=== PATIENT | male | born 1975 | race Caucasian/White ===

== ENCOUNTER → 2017-06-07 | Outpatient (CLI) | payer OTHER ==
--- NOTE | 2017-06-07 12:00 | XR ---
EXAMINATION TYPE: XR knee complete RT DATE OF EXAM: 06/07/2017 COMPARISON: NONE HISTORY: 42 year-old male right knee pain TECHNIQUE: 3 views FINDINGS: Trace nonspecific knee joint effusion. Extensor mechanism is intact. No acute fracture, subluxation, or dislocation. IMPRESSION: Trace nonspecific knee joint effusion. No acute osseous abnormality seen.
== END | disposition home or self-care (01) ==
LOC: RADXRMAIN 11:26
PROVIDERS: ATTEND Physician Assistant
DX: M25.561 Pain in right knee (principal)

== ENCOUNTER → 2018-07-04 | Outpatient (CLI) | payer OTHER ==
--- NOTE | 2018-07-05 10:27 | MR ---
EXAMINATION TYPE: MR pituitary wo/w con DATE OF EXAM: 07/04/2018 6:33 PM COMPARISON: NONE HISTORY: Other specified endocrine disorders CONTRAST: Patient received 7.5 mL intravenous Gadavist gadolinium contrast. Multiplanar MultiSpin echo imaging of the pituitary fossa was performed. Unenhanced followed by cont rast enhanced images are submitted. The unenhanced portion of the study fails to demonstrate evidence for hyperintense pituitary lesion. The pituitary gland is of normal size and measures 1.0 x 1.1 x .6 cm. Following contrast administra tion there is no evidence for filling defect to suggest microadenoma. Pituitary stalk is midline. S uprasellar cistern is unremarkable without evidence for mass. Optic chiasm has a normal appearance. Cavernous sinus including the carotid vessels appear to be within normal limits. IMPRESSION: 1. No evidence for pituitary micro or macroadenoma.
== END | disposition home or self-care (01) ==
LOC: RADMRIMAIN 16:24
PROVIDERS: ATTEND Family Medicine
DX: E34.8 Other specified endocrine disorders (principal)
CPT/HCPCS: 70553; A9585

== ENCOUNTER → 2018-07-04 | Outpatient (CLI) | payer OTHER | LOC: LABWHC1 11:04 | PROVIDERS: ATTEND Family Medicine | DX: E34.8 Other specified endocrine disorders (principal) | CPT/HCPCS: 36415; 82024 ==

== ENCOUNTER → 2018-07-22 | Outpatient (CLI) | payer OTHER ==
--- NOTE | 2018-07-22 08:55 | MR ---
EXAMINATION TYPE: MR brain wo/w con DATE OF EXAM: 07/22/2018 COMPARISON: Prior MRI pituitary gland July 04, 2018. Prior brain MRI January 21, 2012. HISTORY: Other specified endocrine disorders TECHNIQUE: Multiplanar, multisequence images of the brain and brainstem is performed without and with IV contras t, utilizing 7.5 mL intravenous Gadavist . FINDINGS: Diffusion weighted images demonstrate no evidence of a recent infarct or other diffusion ab normality. There is slight prominence of CSF over bilateral frontal lobes redemonstrated slightly mo re prominent from 2012 MRI consistent with mild symmetric frontal lobe atrophy. There are few scatter ed foci of T2 hyperintensity seen throughout the white matter bilaterally, less than 5 tiny lesions a re felt present. Midline structures demonstrate normal morphology. The craniocervical junction appears within normal limits. Post contrast images demonstrate no abnormal enhancement. The dural venous sinuses appear pa tent. The visualized sinuses are clear and the globes are intact. Patchy fluid signal bilateral masto id air cells is redemonstrated. IMPRESSION: No suspicious enhancing mass. Pituitary gland remains normal in size.
== END | disposition home or self-care (01) ==
LOC: RADMRIMAIN 08:10
PROVIDERS: ATTEND Family Medicine
DX: E34.8 Other specified endocrine disorders (principal)
CPT/HCPCS: 70553; A9585

== ENCOUNTER → 2018-08-15 | Outpatient (CLI) | payer OTHER ==
[2018-08-15 18:56] LABS: T4, Free (Free Thyroxine) 1.6 ng/dL (0.80-1.80)
== END ==
LOC: LABWHC1 11:09
PROVIDERS: ATTEND Internal Medicine
DX: E03.9 Hypothyroidism, unspecified (principal); E23.7 Disorder of pituitary gland, unspecified
CPT/HCPCS: 36415; 84439; 84443; 84445; 84481; 86376

== ENCOUNTER 2024-01-08 10:16 | Inpatient (IN) | payer OTHER ==
--- NOTE | 2024-01-08 10:21 | ED ---
General Adult HPI - General Stated complaint: Low Blood sugar Time Seen by Provider: 01/08/24 10:16 Source: patient, RN notes reviewed, old records reviewed - History of Present Illness Initial comments: This is a 48-year-old male who was found down by his roommate according to the roommate he was down for 4 hours. Patient states he took insulin of his 's because he is sick of living without her. Patient had a low sugar when EMS got there they gave the patient some glucose and the patient came around and route here. Patient is freezing cold at this point. Patient denies any pain patient denies chest pain difficulty breathing shortness of breath. Patient has abdominal pain patient has nausea vomiting diarrhea. Patient denies any recent fever. According to EMS the patient's home was in complete disarray and disgusting food all over the place including raw meat counters look like feces on the floor. - Related Data Home Medications Medication Instructions Recorded Confirmed No Known Home Medications 01/08/24 01/08/24 Allergies Allergy/AdvReac Type Severity Reaction Status Date / Time No Known Allergies Allergy Verified 01/08/24 12:29 Review of Systems ROS Statement: Those systems with pertinent positive or pertinent negative responses have been documented in the HPI. ROS Other: All systems not noted in ROS Statement are negative. General Exam - General Exam Comments Initial Comments: GENERAL: Patient is well-developed and well-nourished. Patient is nontoxic and well- hydrated and is in mild distress. Patient is very cold to the touch ENT: Neck is soft and supple. No significant lymphadenopathy is noted. Oropharynx is clear. Moist mucous membranes. Neck has full range of motion without eliciting any pain. EYES: The sclera were anicteric and conjunctiva were pink and moist. Extraocular movements were intact and pupils were equal round and reactive to light. Eyel ids were unremarkable. PULMONARY: Unlabored respirations. Good breath sounds bilaterally. No audible rales rhonchi or wheezing was noted. CARDIOVASCULAR: There is a regular rate and rhythm without any murmurs gallops or rubs. ABDOMEN: Soft and nontender with normal bowel sounds. SKIN: Skin is clear with no lesions or rashes and otherwise unremarkable. NEUROLOGIC: Patient is alert and oriented x3. Cranial nerves II through XII are grossly intact. Motor and sensory are also intact. Normal speech, volume and content. Symmetrical smile. MUSCULOSKELETAL: Normal extremities with adequate strength and full range of motion. LYMPHATICS: No significant lymphadenopathy is noted PSYCHIATRIC: Normal psychiatric evaluation. Course Vital Signs 01/08/24 01/08/24 01/08/24 10:29 10:50 11:25 Temperature 89.6 F L 90.3 F L Pulse Rate 87 61 Respiratory 18 18 Rate Blood Pressure 108/66 O2 Sat by Pulse 98 99 Oximetry 01/08/24 11:51 Temperature 91.6 F L Pulse Rate 66 Respiratory 18 Rate Blood Pressure 89/66 O2 Sat by Pulse 98 Oximetry Medical Decision Making - Medical Decision Making EKG is interpreted by myself. EKG is a sinus rhythm at 71 bpm parables under 97 QRS is 89 QT interval 397 QTc is 419. Patient's EKG shows no ST segment elevation or depression. Was pt. sent in by a medical professional or institution (, PA, CULINARY INSTRUCTOR, urgent care, hospital, or residential...) When possible be specific @ -No Did you speak to anyone other than the patient for history (EMS, parent, family, police, friend...)? What history was obtained from this source @ -EMS gave the history that they received from the patient's roommate because the patient was unresponsive at the time and did not know the history. Did you review nursing and triage notes (agree or disagree)? Why? @ -I reviewed and agree with nursing and triage notes Were old charts reviewed (outside hosp., previous admission, EMS record, old EKG, old radiological studies, urgent care reports/EKG's, residential records)? Report findings @ -No old charts were reviewed Differential Diagnosis (chest pain, altered mental status, abdominal pain women, abdominal pain men, vaginal bleeding, weakness, fever, dyspnea, syncope, headache, dizziness, GI bleed, back pain, seizure, CVA, palpatations, mental health, musculoskeletal)? @ -Differential Altered Mental Status: Hypoglycemia, DKA, hypercapnia, ETOH, overdose, CO poisoning, trauma, myxedema coma, HTN encephalopathy, infection, encephalitis, psychosis, intercranial hemorrhage, hepatic encephalopathy, meningitis, CVA, this is not meant to be an all-inclusive list EKG interpreted by me (3pts min.). @ -As above X-rays interpreted by me (1pt min.). @ -Chest x-ray shows no acute abnormality CT interpreted by me (1pt min.). @ -None done U/S interpreted by me (1pt. min.). @ -None done What testing was considered but not performed or refused? (CT, X-rays, U/S, labs)? Why? @ -None What meds were considered but not given or refused? Why? @ -None Did you discuss the management of the patient with other professionals (professionals i.e. DrClaudia, PA, CULINARY INSTRUCTOR, lab, RT, psych nurse, social scientist, hand cloth folder, teacher, business liaison officer, correctional counselor/case manager)? Give summary @ -I spoke with [facility] hospitalist and they agreed admit the patient Was smoking cessation discussed for >3mins.? @ -No Was critical care preformed (if so, how long)? @ -35 minutes Were there social determinants of health that impacted care today? How? (Home lessness, low income, unemployed, alcoholism, drug addiction, transportation, low edu. Level, literacy, decrease access to med. care, [facility], rehab)? @ -No Was there de-escalation of care discussed even if they declined (Discuss DNR or withdrawal of care, Hospice)? DNR status @ -No What co-morbidities impacted this encounter? (DM, HTN, Smoking, COPD, CAD, Cancer, CVA, ARF, Chemo, Hep., AIDS, mental health diagnosis, sleep apnea, morbid obesity)? @ -None Was patient admitted / discharged? Hospital course, mention meds given and route, prescriptions, significant lab abnormalities, going to OR and other pertinent info. @ -Patient was hypothermic when he arrived he was placed on a blanketrol and B ear hugger as well as was given warm fluids. Patient was also given a meal he was feeling much better but he did state he was suicidal. Patient will be admitted medically to make sure his sugar stabilized secondary to the fact he took insulin and we do not know how much and patient will have a psych consult as well. Patient's lactic acid was elevated however I believe this is secondary to poor perfusion secondary to the patient lying on the ground for at least 4 hours and not moving secondary to hypoglycemia. Patient was given fluid. No signs of infection were found Undiagnosed new problem with uncertain prognosis? @ -No Drug Therapy requiring intensive monitoring for toxicity (Heparin, Nitro, Insulin, Cardizem)? @ -No Were any procedures done? @ -No Diagnosis/symptom? @ -Suicidal attempt Acute, or Chronic, or Acute on Chronic? @ -Acute Uncomplicated (without systemic symptoms) or Complicated (systemic symptoms)? @ -Comp Side effects of treatment? @ -No Exacerbation, Progression, or Severe Exacerbation? @ -No Poses a threat to life or bodily function? How? (Chest pain, USA, AR, pneumonia, PE, COPD, DKA, ARF, appy, cholecystitis, CVA, Diverticulitis, Homicidal, Suicidal, threat to staff... and all critical care pts) @ -Yes this can lead to him trying to harm himself and causing . Diagnosis/symptom? @ -Hypothermia Acute, or Chronic, or Acute on Chronic? @ -Acute Uncomplicated (without systemic symptoms) or Complicated (systemic symptoms)? @ -Complicated Side effects of treatment? @ -None Exacerbation, Progression, or Severe Exacerbation] @ -No Poses a threat to life or bodily function? @ -No Diagnosis/symptom? @ -Hypoglycemia Acute, or Chronic, or Acute on Chronic? @ -Acute Uncomplicated (without systemic symptoms) or Complicated (systemic symptoms)? @ -Complicated Side effects of treatment? @ -None Exacerbation, Progression, or Severe Exacerbation] @ -No Poses a threat to life or bodily function? @ -No Diagnosis/symptom? @ -Lactic acidosis Acute, or Chronic, or Acute on Chronic? @ -Acute Uncomplicated (without systemic symptoms) or Complicated (systemic symptoms)? @ -Uncomplicated Side effects of treatment? @ -None Exacerbation, Progression, or Severe Exacerbation] @ -No Poses a threat to life or bodily function? @ -No - Lab Data Result diagrams: 01/08/24 10:38 01/08/24 10:38 Lab Results 01/08/24 01/08/24 01/08/24 Range/Units 10:21 10:38 10:38 WBC 6.7 (3.8-10.6) k/uL RBC 4.30 (4.30-5.90) m/uL Hgb 13.6 (13.0-17.5) gm/dL Hct 42.2 (39.0-53.0) % MCV 98.1 (80.0-100.0) fL MCH 31.6 (25.0-35.0) pg MCHC 32.2 (31.0-37.0) g/dL RDW 14.7 (11.5-15.5) % Plt Count 123 L (150-450) k/uL MPV 8.7 Neutrophils % 80 % Lymphocytes % 14 % Monocytes % 5 % Eosinophils % 0 % Basophils % 0 % Neutrophils # 5.3 (1.3-7.7) k/uL Lymphocytes # 1.0 (1.0-4.8) k/uL Monocytes # 0.3 (0-1.0) k/uL Eosinophils # 0.0 (0-0.7) k/uL Basophils # 0.0 (0-0.2) k/uL Sodium 139 (137-145) mmol/L Potassium 4.1 (3.5-5.1) mmol/L Chloride 102 (98-107) mmol/L Carbon Dioxide 19 L (22-30) mmol/L Anion Gap 18 mmol/L BUN 12 (9-20) mg/dL Creatinine 1.06 (0.66-1.25) mg/dL Est GFR (CKD-EPI)AfAm >90 (>60 ml/min/1.73 sqM) Est GFR (CKD-EPI)NonAf 83 (>60 ml/min/1.73 sqM) Glucose 44 L* (74-99) mg/dL POC Glucose (mg/dL) 63 L (70-110) mg/dL POC Glu Curator Of Education ID Humera Joseph Lactic Ac Sepsis Rflx Plasma Lactic Acid Christopher (0.7-2.0) mmol/L Calcium 8.9 (8.4-10.2) mg/dL Magnesium 2.5 H (1.6-2.3) mg/dL Total Bilirubin 0.5 (0.2-1.3) mg/dL AST 48 (17-59) U/L ALT 55 H (4-49) U/L Alkaline Phosphatase 39 (38-126) U/L Creatine Kinase 274 H (55-170) U/L Troponin I (0.000-0.034) ng/mL Total Protein 7.6 (6.3-8.2) g/dL Albumin 4.3 (3.5-5.0) g/dL Acetaminophen <10.0 ug/mL 01/08/24 01/08/24 01/08/24 Range/Units 10:38 10:38 11:26 WBC (3.8-10.6) k/uL RBC (4.30-5.90) m/uL Hgb (13.0-17.5) gm/dL Hct (39.0-53.0) % MCV (80.0-100.0) fL MCH (25.0-35.0) pg MCHC (31.0-37.0) g/dL RDW (11.5-15.5) % Plt Count (150-450) k/uL MPV Neutrophils % % Lymphocytes % % Monocytes % % Eosinophils % % Basophils % % Neutrophils # (1.3-7.7) k/uL Lymphocytes # (1.0-4.8) k/uL Monocytes # (0-1.0) k/uL Eosinophils # (0-0.7) k/uL Basophils # (0-0.2) k/uL Sodium (137-145) mmol/L Potassium (3.5-5.1) mmol/L Chloride (98-107) mmol/L Carbon Dioxide (22-30) mmol/L Anion Gap mmol/L BUN (9-20) mg/dL Creatinine (0.66-1.25) mg/dL Est GFR (CKD-EPI)AfAm (>60 ml/min/1.73 sqM) Est GFR (CKD-EPI)NonAf (>60 ml/min/1.73 sqM) Glucose (74-99) mg/dL POC Glucose (mg/dL) (70-110) mg/dL POC Glu Curator Of Education ID Lactic Ac Sepsis Rflx Y Plasma Lactic Acid Christopher 8.9 H* (0.7-2.0) mmol/L Calcium (8.4-10.2) mg/dL Magnesium (1.6-2.3) mg/dL Total Bilirubin (0.2-1.3) mg/dL AST (17-59) U/L ALT (4-49) U/L Alkaline Phosphatase (38-126) U/L Creatine Kinase (55-170) U/L Troponin I <0.012 (0.000-0.034) ng/mL Total Protein (6.3-8.2) g/dL Albumin (3.5-5.0) g/dL Acetaminophen ug/mL 01/08/24 01/08/24 01/08/24 Range/Units 11:28 11:29 11:50 WBC (3.8-10.6) k/uL RBC (4.30-5.90) m/uL Hgb (13.0-17.5) gm/dL Hct (39.0-53.0) % MCV (80.0-100.0) fL MCH (25.0-35.0) pg MCHC (31.0-37.0) g/dL RDW (11.5-15.5) % Plt Count (150-450) k/uL MPV Neutrophils % % Lymphocytes % % Monocytes % % Eosinophils % % Basophils % % Neutrophils # (1.3-7.7) k/uL Lymphocytes # (1.0-4.8) k/uL Monocytes # (0-1.0) k/uL Eosinophils # (0-0.7) k/uL Basophils # (0-0.2) k/uL Sodium (137-145) mmol/L Potassium (3.5-5.1) mmol/L Chloride (98-107) mmol/L Carbon Dioxide (22-30) mmol/L Anion Gap mmol/L BUN (9-20) mg/dL Creatinine (0.66-1.25) mg/dL Est GFR (CKD-EPI)AfAm (>60 ml/min/1.73 sqM) Est GFR (CKD-EPI)NonAf (>60 ml/min/1.73 sqM) Glucose (74-99) mg/dL POC Glucose (mg/dL) 21 L <20 L 110 (70-110) mg/dL POC Glu Curator Of Education ID Fenton, Humera Fenton, Humera Jake, Humera Lactic Ac Sepsis Rflx Plasma Lactic Acid Christopher (0.7-2.0) mmol/L Calcium (8.4-10.2) mg/dL Magnesium (1.6-2.3) mg/dL Total Bilirubin (0.2-1.3) mg/dL AST (17-59) U/L ALT (4-49) U/L Alkaline Phosphatase (38-126) U/L Creatine Kinase (55-170) U/L Troponin I (0.000-0.034) ng/mL Total Protein (6.3-8.2) g/dL Albumin (3.5-5.0) g/dL Acetaminophen ug/mL Disposition Clinical Impression: Hypoglycemia, Hypothermia, Suicide attempt, Lactic acidosis Disposition: ADMITTED IP TO THIS HOSP Referrals: Scot Tran MD [Primary Care Provider] - 1-2 days Time of Disposition: 13:44
[2024-01-08 10:32] LABS: Glucose,Whole Blood 63 mg/dL (70-110)
[2024-01-08] MEDS: SODIUM CHLORIDE 0.9% 1,000 ML IV STA (10:33)
[2024-01-08] MEDS: DEXTROSE 5%-0.45% NACL 1,000 ML IV ONE (10:36)
[2024-01-08 10:54] LABS: Basophils % (A) 0 %; Eosinophils % (A) 0 %; HCT 42.2 % (39.0-53.0); HGB 13.6 gm/dL (13.0-17.5); Lymphocytes % (A) 14 %; MCH 31.6 pg (25.0-35.0); MCHC 32.2 g/dL (31.0-37.0); MCV 98.1 fL (80.0-100.0); Mean Platelet Volume 8.7; Monocytes # (A) 0.3 k/uL (0-1.0); Monocytes % (A) 5 %; Neutrophils # (A) 5.3 k/uL (1.3-7.7); Neutrophils % (A) 80 %; Platelet Count 123 k/uL (150-450); RDW 14.7 % (11.5-15.5); WBC 6.7 k/uL (3.8-10.6)
[2024-01-08 11:05] LABS: ALT 55 U/L (4-49); AST 48 U/L (17-59); Acetaminophen <10.0 ug/mL; African American GFR (CKD) >90 (>60 ml/min/1.73 sqM); Albumin 4.3 g/dL (3.5-5.0); Alkaline Phosphatase 39 U/L (38-126); Anion Gap 18 mmol/L; Blood Urea Nitrogen 12 mg/dL (9-20); Calcium 8.9 mg/dL (8.4-10.2); Carbon Dioxide 19 mmol/L (22-30); Chloride 102 mmol/L (98-107); Creatine Kinase 274 U/L (55-170); Magnesium 2.5 mg/dL (1.6-2.3); Non-African American GFR(CKD) 83 (>60 ml/min/1.73 sqM); Potassium 4.1 mmol/L (3.5-5.1); Sodium 139 mmol/L (137-145); Total Bilirubin 0.5 mg/dL (0.2-1.3); Total Protein 7.6 g/dL (6.3-8.2)
[2024-01-08 11:26] LABS: Glucose 44 mg/dL (74-99)
[2024-01-08] MEDS: DEXTROSE 50% SYRINGE 50 ML IVP STA (11:33)
[2024-01-08 11:34] LABS: Glucose,Whole Blood <20 mg/dL (70-110)
[2024-01-08 11:34] LABS: Glucose,Whole Blood 21 mg/dL (70-110)
--- NOTE | 2024-01-08 11:59 | XR ---
EXAMINATION TYPE: XR chest 2V DATE OF EXAM: 01/08/2024 COMPARISON: None HISTORY: 48-year-old male with recent pain TECHNIQUE: AP and lateral views FINDINGS: The cardiomediastinal silhouette, aorta, and pulmonary vasculature are within normal limits. No conso lidation or pleural effusion. IMPRESSION: No acute cardiopulmonary process.
[2024-01-08 12:01] LABS: Glucose,Whole Blood 110 mg/dL (70-110)
[2024-01-08 16:13] LABS: Glucose,Whole Blood 50 mg/dL (70-110)
[2024-01-08 18:54] LABS: Glucose,Whole Blood 142 mg/dL (70-110)
[2024-01-08 20:05] LABS: Glucose,Whole Blood 157 mg/dL (70-110)
[2024-01-08] MEDS: SODIUM CHLORIDE 0.9% 1,000 ML IV ONE (20:08)
[2024-01-08] MEDS: SODIUM CHLORIDE 0.9% 500 ML 500 ML IV ONE ×2 (21:20→23:18)
[2024-01-08 21:33] LABS: Appearance,Urine Clear (Clear); Bilirubin,Urine Negative (Negative); Blood,Urine Small (Negative); Color,Urine Colorless; Glucose,Urine (UA) Negative (Negative); Hyaline Casts,Urine 11 /lpf (0-2); Ketones,Urine Negative (Negative); Leukocyte Esterase,Urine Negative (Negative); Mucus,Urine Rare /hpf; Nitrite,Urine Negative (Negative); PH, Urine 5.5 (5.0-8.0); Protein,Urine Trace (Negative); RBC,Urine 1 /hpf (0-5); Specific Gravity,Urine 1.007 (1.001-1.035); Urobilinogen,Urine <2.0 mg/dL (<2.0); WBC,Urine 1 /hpf (0-5)
[2024-01-08 22:16] LABS: Glucose,Whole Blood 144 mg/dL (70-110)
[2024-01-09 00:45] LABS: Glucose,Whole Blood 87 mg/dL (70-110)
[2024-01-09] MEDS: ACETAMINOPHEN TAB 500 MG TAB PO PRN (00:51)
--- NOTE | 2024-01-09 02:02 | HP ---
HISTORY AND PHYSICAL CHIEF COMPLAINT: insulin injection as well as low blood sugar. HISTORY OF PRESENT ILLNESS: This is a 48-year-old gentleman with a past medical history of no significant medical illness, apparently injected large dose of insulin in his stomach. The patient was found by the roommate and was down at least for 4 hours. The patient took insulin of his . The patient's recently passed because of multiple medical issues apparently including diabetes mellitus and the patient is severely depressed after that. The patient was found to be cold and blood sugars dropped, D50 was given and the patient has been admitted for further evaluation and treatment. There is no history of any fevers, rigors, or chills. PAST MEDICAL HISTORY: No significant cardiorespiratory illness. HOME MEDICATIONS: None. ALLERGIES: None. FAMILY HISTORY: No history of heart disease or stroke. SOCIAL HISTORY: No history of smoking or alcohol. REVIEW OF SYSTEMS: A 14-point review is negative except as mentioned earlier. PHYSICAL EXAMINATION: VITAL SIGNS: Pulse is 61, blood pressure 89/60, respirations 18, temperature 91.6. HEENT: Conjunctivae normal. NECK: No jugular venous distention. RESPIRATIONS: Diminished at the bases, few scattered rhonchi and crackles. ABDOMEN: Soft, nontender. LEGS: No edema, no swelling. NERVOUS SYSTEM: No focal deficit. LABS: Accu-Chek 44. Lactic acid is 8.9. ASSESSMENT: 1. Severe hypoglycemia secondary to intentional overdose of insulin. 2. Lactic acidemia present on admission with mild rhabdomyolysis. 3. Thrombocytopenia. 4. Severe depression and suicidal ideations. RECOMMENDATIONS AND DISCUSSION: This 48-year-old gentleman presented with multiple complex medical issues, we will monitor the patient closely. I would recommend to continue with checking blood sugars and IV fluids. I would also recommend basic labs and chest x-ray, cultures, psychiatric evaluation. Guarded prognosis because of multiple complex medical issues and further recommendations to follow. Discussed with the patient and see orders for further details. MMODL / IJN: [id number] / MTDKeshav
[2024-01-09 02:38] LABS: Glucose,Whole Blood 86 mg/dL (70-110)
[2024-01-09] MEDS: SODIUM CHLORIDE 0.9% 1,000 ML IV SCH (04:00)
[2024-01-09 04:06] LABS: Glucose,Whole Blood 74 mg/dL (70-110)
[2024-01-09] MEDS: SODIUM CHLORIDE 0.9% 500 ML 500 ML IV ONE (04:30)
[2024-01-09 04:57] LABS: Glucose,Whole Blood 73 mg/dL (70-110)
[2024-01-09 05:26] LABS: Glucose,Whole Blood 69 mg/dL (70-110)
[2024-01-09] MEDS: GLUCAGON 1 MG/ML VIAL IM STA (05:42)
[2024-01-09 05:46] LABS: Glucose,Whole Blood 76 mg/dL (70-110)
[2024-01-09] MEDS: PANTOPRAZOLE 40 MG TABLET PO SCH (06:02)
[2024-01-09 06:07] LABS: Glucose,Whole Blood 90 mg/dL (70-110)
[2024-01-09 07:12] LABS: Basophils % (A) 0 %; Eosinophils % (A) 0 %; HCT 35.7 % (39.0-53.0); HGB 11.3 gm/dL (13.0-17.5); Lymphocytes # (A) 1.8 k/uL (1.0-4.8); Lymphocytes % (A) 36 %; MCH 31.5 pg (25.0-35.0); MCHC 31.8 g/dL (31.0-37.0); MCV 99.1 fL (80.0-100.0); Mean Platelet Volume 8.8; Monocytes # (A) 0.2 k/uL (0-1.0); Monocytes % (A) 5 %; Neutrophils # (A) 2.9 k/uL (1.3-7.7); Neutrophils % (A) 57 %; Platelet Count 114 k/uL (150-450); RDW 14.4 % (11.5-15.5)
[2024-01-09 07:27] LABS: ALT 162 U/L (4-49); AST 195 U/L (17-59); African American GFR (CKD) 80 (>60 ml/min/1.73 sqM); Albumin 2.9 g/dL (3.5-5.0); Alkaline Phosphatase 37 U/L (38-126); Anion Gap 3 mmol/L; Blood Urea Nitrogen 12 mg/dL (9-20); Carbon Dioxide 26 mmol/L (22-30); Chloride 110 mmol/L (98-107); Glucose 102 mg/dL (74-99); Non-African American GFR(CKD) 69 (>60 ml/min/1.73 sqM); Potassium 4.6 mmol/L (3.5-5.1); Sodium 139 mmol/L (137-145); Total Bilirubin 0.4 mg/dL (0.2-1.3); Total Protein 5.6 g/dL (6.3-8.2)
[2024-01-09 07:57] LABS: Glucose,Whole Blood 98 mg/dL (70-110)
[2024-01-09 09:56] LABS: Glucose,Whole Blood 66 mg/dL (70-110)
[2024-01-09 10:12] LABS: Glucose,Whole Blood 62 mg/dL (70-110)
[2024-01-09 10:29] LABS: Glucose,Whole Blood 66 mg/dL (70-110)
[2024-01-09] MEDS: GLUCAGON 1 MG/ML VIAL ONE (10:30)
[2024-01-09] MEDS: GLUCAGON 1 MG/ML VIAL IVP STA (10:30)
[2024-01-09 10:46] LABS: Glucose,Whole Blood 92 mg/dL (70-110)
[2024-01-09 11:35] LABS: Glucose,Whole Blood 138 mg/dL (70-110)
[2024-01-09] MEDS ORDERED: DEXTROSE 50% SYRINGE 50 ML IVP PRN (12:39)
[2024-01-09] MEDS: DEXTROSE 10% IN WATER 1,000 ML with SODIUM CHLORIDE 4MEQ/ML VIAL 153.8 MEQ IV SCH (13:11)
[2024-01-09 13:52] LABS: Glucose,Whole Blood 89 mg/dL (70-110)
[2024-01-09 15:59] LABS: Glucose,Whole Blood 109 mg/dL (70-110)
--- NOTE | 2024-01-09 17:29 | PN ---
PROGRESS NOTE DATE OF SERVICE: 01/09/2024 SUBJECTIVE: This 48-year-old gentleman admitted with low hypoglycemia after surreptitious injection of insulin because the patient is depressed after passing his , who was also noted to have recurrent hypoglycemia. At this time, the sugars have been low up to 62 and the patient is apparently taking some long-acting insulins also. There is no history of any fever, rigors, or chills at this time. I am planning to start the patient on D10 drip and continue to monitor. PAST MEDICAL HISTORY: Reviewed. REVIEW OF SYSTEMS: A 14-point review of systems is negative except as mentioned earlier. CURRENT MEDICATIONS: Reviewed include D10 drip and rest of medications noted. PHYSICAL EXAMINATION: VITAL SIGNS: Pulse is 62, blood pressure n, and respirations 16. CHEST: Clear to auscultation. ABDOMEN: Soft. NERVOUS SYSTEM: Nonfocal. LABORATORY DATA: Reviewed. Hemoglobin 11.3, rest of the labs are noted. AST and ALT are elevated. CK is also elevated. ASSESSMENT: 1. Severe hypoglycemia, possibly secondary to intentional overdose of insulin. 2. Mild acute rhabdomyolysis with lactic acidemia. 3. Elevated LFTs. 4. Thrombocytopenia. 5. Severe depression and suicidal ideations. RECOMMENDATIONS: Recommended to continue current medical management and avoid hepatotoxic medications at this time continue to monitor. Repeat labs. Continue with IV fluids. Otherwise, will repeat CK in the morning and continue to monitor. Psychiatric evaluation. Suicide precautions. Guarded prognosis. DVT prophylaxis. Further recommendations to follow. MMPAULOL / SABRINAN: [id number] / MTDD
[2024-01-09 17:59] LABS: Glucose,Whole Blood 134 mg/dL (70-110)
[2024-01-09] MEDS ORDERED: INSULIN ASPART (NovoLOG) 100 UNIT/ML VIAL SQ PRN (18:31)
[2024-01-09 20:27] LABS: Glucose,Whole Blood 130 mg/dL (70-110)
[2024-01-09] MEDS: HEPARIN SODIUM,PORCINE 5,000 UNIT/ML 1 ML VIAL SQ SCH (20:28)
[2024-01-09 22:08] LABS: Glucose,Whole Blood 102 mg/dL (70-110)
[2024-01-09 23:50] LABS: Glucose,Whole Blood 140 mg/dL (70-110)
[2024-01-10 01:55] LABS: Glucose,Whole Blood 97 mg/dL (70-110)
[2024-01-10 04:05] LABS: Glucose,Whole Blood 112 mg/dL (70-110)
[2024-01-10 05:51] LABS: Glucose,Whole Blood 106 mg/dL (70-110)
[2024-01-10 08:04] LABS: Glucose,Whole Blood 131 mg/dL (70-110)
[2024-01-10 08:43] LABS: Basophils % (A) 0 %; Eosinophils # (A) 0.1 k/uL (0-0.7); Eosinophils % (A) 1 %; HCT 38.2 % (39.0-53.0); HGB 12.3 gm/dL (13.0-17.5); Lymphocytes # (A) 1.4 k/uL (1.0-4.8); Lymphocytes % (A) 27 %; MCH 31.6 pg (25.0-35.0); MCHC 32.2 g/dL (31.0-37.0); MCV 98.2 fL (80.0-100.0); Monocytes # (A) 0.2 k/uL (0-1.0); Monocytes % (A) 4 %; Neutrophils # (A) 3.5 k/uL (1.3-7.7); Neutrophils % (A) 66 %; Platelet Count 121 k/uL (150-450); RBC 3.89 m/uL (4.30-5.90); RDW 14.4 % (11.5-15.5); WBC 5.2 k/uL (3.8-10.6)
[2024-01-10 09:11] LABS: ALT 286 U/L (4-49); AST 269 U/L (17-59); African American GFR (CKD) 64 (>60 ml/min/1.73 sqM); Albumin 3.1 g/dL (3.5-5.0); Alkaline Phosphatase 41 U/L (38-126); Anion Gap 3 mmol/L; Blood Urea Nitrogen 9 mg/dL (9-20); Calcium 8.3 mg/dL (8.4-10.2); Carbon Dioxide 28 mmol/L (22-30); Chloride 108 mmol/L (98-107); Creatine Kinase 470 U/L (55-170); Glucose 89 mg/dL (74-99); Non-African American GFR(CKD) 55 (>60 ml/min/1.73 sqM); Potassium 3.8 mmol/L (3.5-5.1); Sodium 139 mmol/L (137-145); Total Bilirubin 0.5 mg/dL (0.2-1.3)
[2024-01-10 09:54] LABS: Glucose,Whole Blood 66 mg/dL (70-110)
[2024-01-10 10:16] LABS: Glucose,Whole Blood 75 mg/dL (70-110)
[2024-01-10 11:59] LABS: Glucose,Whole Blood 119 mg/dL (70-110)
[2024-01-10 13:57] LABS: Glucose,Whole Blood 110 mg/dL (70-110)
[2024-01-10 15:03] VITALS: BMI 20.9
[2024-01-10 16:16] LABS: Glucose,Whole Blood 106 mg/dL (70-110)
[2024-01-10 18:11] LABS: Glucose,Whole Blood 116 mg/dL (70-110)
[2024-01-10 19:57] LABS: Glucose,Whole Blood 103 mg/dL (70-110)
[2024-01-10] MEDS: PANTOPRAZOLE 40 MG/10 ML VIAL IVP SCH (20:17)
--- NOTE | 2024-01-10 21:03 | P.CN ---
Psychiatric Consult - . Consult date: 01/10/24 Consult:: 01/10/24 21:02 CONSULTATION Reason for consult; Evaluation and management of suicidality Identifying Data: The patient is a 48 year old, , WM, who lives [place], [place] in a house with a roommate. Reason for admission: the patient took large dose of his wifes insulin. History of present illness: The patient presented to ER with unresponsive with hypoglycemia, and hypothermia. After initial examination and other work-up he was transferred to medical floor for further management. During this evaluation, the patient reported that his 10 months ago. Following her , he started losing interest in doing things, lost energy, motivation, isolated himself, ignoring paying his bill, neglecting himself, and finally got to the point that he decided to end his life. He injected himself with his wifes insulin. He was found passed by his roommate, who call the EMS and got brought to the Hospital. The patient noted that he has never had such an episode in the past, He has never been under psychiatric treatment in the past. 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 After her the patient tried to find a job but got denied because no h/o work for 14 years. This further contributed to worsening of depression with feelings of worthlessness and hopelessness. He denied thought of harming anybody. He denied any symptoms consistent with psychosis. He no apst h/o of psychiatric treatment. No h/o suicidal or homicidal behavior. Past medical history: None significant. Substance abuse history: Oxycontin and Alcohol. The patient noted that he stopped using alcohol and oxycontin after her . Family history of psychiatric disorder: The patient was adopted. MSE: The patient was alert and attentive. Orientation X3. Patient was pleasant and cooperative. Psychomotor activity was normal Speech was normal tone, quality, but underproductive. Mood: Depressed Affect; Subdued and sad. SI or HI- None Thought content- normal Thought process- normal Perceptual disturbance- none Cognition- Intact Judgement- Intact Insight- Poor IMP: Major Depressive Disorder, severe, single episode Suicidal attempt. REC: Transfer to [facility] after medical stabilization. Ihsan Corea MD Psychiatry
[2024-01-10 21:48] LABS: Glucose,Whole Blood 95 mg/dL (70-110)
[2024-01-10 23:51] LABS: Glucose,Whole Blood 114 mg/dL (70-110)
[2024-01-11 02:14] LABS: Glucose,Whole Blood 96 mg/dL (70-110)
[2024-01-11 04:04] LABS: Glucose,Whole Blood 101 mg/dL (70-110)
--- NOTE | 2024-01-11 04:05 | PN ---
PROGRESS NOTE DATE OF SERVICE: 01/10/2024 SUBJECTIVE: This is a 48-year-old gentleman who was admitted with severe hypoglycemia secondary to surreptitious insulin injection with suicidal ideation, is being closely monitored at this time. The blood sugar is still showing some hypoglycemic episode. LFTs also elevated. The patient had some features of mild rhabdomyolysis also. No chest pain, no palpitations, no fever. OBJECTIVE: VITAL SIGNS: Pulse 84, blood pressure 102/76, respirations 16. CHEST: Clear to auscultation. CARDIOVASCULAR: S1, S2. ABDOMEN: Soft. NERVOUS SYSTEM: Nonfocal. LABORATORY DATA: Reviewed. ASSESSMENT: 1. Severe hypoglycemia possibly secondary to intentional overdose of insulin with suicidal ideation. 2. Mild acute rhabdomyolysis with lactic acidemia. 3. Elevated LFTs. 4. Thrombocytopenia. 5. Severe depression and suicidal ideations. RECOMMENDATIONS: Recommended to continue current management, continue symptomatic treatment, otherwise currently the patient is on D10 drip. I will continue the D10 drip and repeat labs. Avoid hepatotoxic medications. Guarded prognosis because of multiple complex medical issues. Further recommendations to follow. See orders for details. The patient has also received MMODL / IJN: [id number] / MTDD
[2024-01-11 05:59] LABS: Glucose,Whole Blood 79 mg/dL (70-110)
[2024-01-11 08:13] LABS: Glucose,Whole Blood 104 mg/dL (70-110)
[2024-01-11 09:44] LABS: Glucose,Whole Blood 86 mg/dL (70-110)
--- NOTE | 2024-01-11 10:18 | CDI ---
Documentation Clarification Form Date: 01/11/2024 09:49:21 AM From: Evonne Garland RN, CCDS Phone: [phone] Admit Date: 01/08/2024 01:48:00 PM Patient Name: Kehinde Stewart Visit Number: [id number] Discharge Date: ATTENTION: The Clinical Documentation Specialists (CDI) and [facility] Coding Staff appreciate your assistance in clarifying documentation. Please respond to the clarification below the line at the bottom and electronically sign. The CDI & [facility] Coding staff will review the response and follow-up if needed. Please note: Queries are made part of the Legal Health Record. If you have any questions, please contact the author of this message via ITS. Dr. Linette Swenson Rhabdomyolysis is documented in the H/P and subsequent progress notes. Additional clarification regarding the type of rhabdomyolysis is requested. History/Risk Factors: No reported history Substance abuse history: Oxycontin and Alcohol. The patient noted that he stopped using alcohol and oxycontin after . Clinical Indicators: 48-year-old male who was found down by his roommate according to the roommate he was down for 4 hours. Per ED evaluation patient's lactic acid was elevated secondary to poor perfusion secondary to the patient lying on the ground for at least 4 hours and not moving secondary to hypoglycemia. 01/07 VS: 108/66 87 18 98% RA 89.6 (Rectal), (11:51) 89/66 66 18 91.6 98% RA 01/07 Labs: Plt count 123, Glucose 44, Lactic acid 8.9, 2.2, 3.5, 2.6, Magnesium 25 ALT 55, 5/11Creatine Kinase 274 01/08Creatine Kinase 624 5/13Creatine Kinase 470 Treatment: .9 NS 1,000 ML Bolus X1, 500 ML Bolus X2 01/07 .9 NS @75 ML/HR 01/07-01/08 Monitor complete blood count w/diff Daily x1 (per orders) Please clarify the type of rhabdomyolysis, if known: [ ] Traumatic rhabdomyolysis due to prolonged immobility [ ] Other, please specify [ ] Unable to Determine (Template Last Revised: October 2020) Unable to Determine MTDD
[2024-01-11 11:10] LABS: Basophils % (A) 1 %; Eosinophils # (A) 0.1 k/uL (0-0.7); Eosinophils % (A) 1 %; HCT 38.6 % (39.0-53.0); HGB 11.9 gm/dL (13.0-17.5); Lymphocytes # (A) 1.7 k/uL (1.0-4.8); Lymphocytes % (A) 37 %; MCH 30.9 pg (25.0-35.0); MCV 99.8 fL (80.0-100.0); Macrocytosis Slight; Mean Platelet Volume 8.7; Monocytes # (A) 0.2 k/uL (0-1.0); Monocytes % (A) 5 %; Neutrophils # (A) 2.4 k/uL (1.3-7.7); Neutrophils % (A) 54 %; Platelet Count 127 k/uL (150-450); RBC 3.86 m/uL (4.30-5.90); RDW 14.5 % (11.5-15.5); WBC 4.5 k/uL (3.8-10.6)
[2024-01-11 11:35] LABS: ALT 196 U/L (4-49); AST 111 U/L (17-59); African American GFR (CKD) 70 (>60 ml/min/1.73 sqM); Alkaline Phosphatase 38 U/L (38-126); Anion Gap 3 mmol/L; Blood Urea Nitrogen 7 mg/dL (9-20); Calcium 7.9 mg/dL (8.4-10.2); Carbon Dioxide 28 mmol/L (22-30); Chloride 107 mmol/L (98-107); Creatine Kinase 299 U/L (55-170); Glucose 72 mg/dL (74-99); Non-African American GFR(CKD) 60 (>60 ml/min/1.73 sqM); Potassium 3.5 mmol/L (3.5-5.1); Sodium 138 mmol/L (137-145); Total Bilirubin 0.6 mg/dL (0.2-1.3); Total Protein 5.8 g/dL (6.3-8.2)
[2024-01-11 12:05] LABS: Glucose,Whole Blood 82 mg/dL (70-110)
[2024-01-11] MEDS: DEXTROSE 5% IN WATER 1,000 ML with POTASSIUM CHLORIDE 40 MEQ IV SCH (13:51)
[2024-01-11 14:45] LABS: Glucose,Whole Blood 88 mg/dL (70-110)
--- NOTE | 2024-01-11 14:57 | P.PN ---
Subjective Progress Note Date: 01/11/24 This is a 48-year-old male who was recently admitted with severe hypoglycemia secondary to possible intentional overdose with insulin. Psychiatry following and patient does meet inpatient criteria once patient is medically stable. Patient is not a diabetic and apparently recently and patient has been depressed and injected himself with her insulin resulting in severe hypoglycemia. LFTs are elevated and patient also showing some features of mild rhabdomyolysis. Patient is afebrile with no reports of chest pain or shortness of breath. Not much of an appetite although tolerating diet and attempting to eat more. Patient denies any nausea or vomiting. Blood sugars being monitored closely and will continue current regimen. Blood sugars have been in the low 80s and will monitor overnight with possible transfer to psychiatric unit for further psychiatric care and evaluation. Will transition to D5 with gentle hydration. Patient is okay to have regular diet and encouraging sweets. Patient is not a diabetic and hemoglobin A1c is 5.1. Review of systems: Constitutional: No reports of fatigue, fever, or chills Cardiovascular: No reports of chest pain or palpitations Respiratory: No reports of shortness of breath or cough GI: No reports of nausea, no reports of vomiting, no diarrhea, reports not much of an appetite : No reports of dysuria or retention Neurovascular: No reports of generalized weakness All medications have been reviewed Active Medications Dextrose/Water (Dextrose 50% Syringe 50 Ml) 25 ml IVP PER PROTOCOL PRN; Protocol PRN Reason: Hypoglycemia Dextrose/Water (Dextrose 50% Syringe 50 Ml) 50 ml IVP PER PROTOCOL PRN; Protocol PRN Reason: Hypoglycemia Heparin Sodium (Porcine) (Heparin Sodium,Porcine 5,000 Unit/Ml 1 Ml Vial) 5,000 unit SQ Q12HR [facility] Last Admin: 01/11/24 08:41 Dose: 5,000 unit Potassium Chloride 40 meq/ (Dextrose/Water) 1,020 mls @ 75 mls/hr IV .[id number] [facility] Last Admin: 01/11/24 13:51 Dose: 75 mls/hr Insulin Aspart (Insulin Aspart (Novolog) 100 Unit/Ml Vial) 0 unit SQ Q2H PRN; Protocol PRN Reason: Blood Sugar - High Pantoprazole Sodium (Pantoprazole 40 Mg/10 Ml Vial) 40 mg IVP BID [facility] Last Admin: 01/11/24 08:41 Dose: 40 mg PHYSICAL EXAMINATION: GENERAL: The patient is alert and oriented x4, Well developed, well nourished. HEENT: Pupils are round and equally reacting to light. EOMI. no scleral icterus. No conjunctival pallor. Normocephalic, atraumatic. No pharyngeal erythema. No thyromegaly. CARDIOVASCULAR: S1 and S2 muffled PULMONARY: diminished breath sounds bilaterally with no wheezing or rhonchi noted. ABDOMEN: soft. Nontender on exam. Thin. Non-distended, normoactive bowel sounds. No palpable organomegaly. MUSCULOSKELETAL: No joint swelling or deformity. EXTREMITIES: No cyanosis, clubbing, or pedal edema. NEUROLOGICAL: Gross neurological examination did not reveal any focal deficits. SKIN: No rashes. Assessment: Severe hypoglycemia, possibly secondary to intentional overdose of insulin with suicidal ideation Mild acute rhabdomyolysis with lactic acidemia, nontraumatic, elevated LFTs, trending down Thrombocytopenia Severe depression and suicidal ideation History of musculoskeletal disorder GI prophylaxis DVT prophylaxis Full code Plan: Recommend to continue with current medications and management and psychiatry has evaluated the patient. Patient meets criteria for inpatient psychiatric unit once medically stable. Will transition to D5 gentle hydration and follow-up with repeat labs and continue to monitor Accu-Cheks closely. Patient is okay for regular diet and encourage sweets Encouraged increase activity as tolerated LFTs are trending down and will follow-up again on repeat labs. Continue with suicide sitter and patient is unable to leave AMA Will monitor overnight with possible transfer to [facility]. for further psychiatric care and evaluation Overall prognosis is guarded at this time Possible discharge to 3 W. in 24 hours The impression and plan of care has been dictated by Marjorie Sampson, nurse practitioner as directed. Dr. Messi MD I have performed a history and examination and MDM of this patient, discussed the same with the dictator, and agree with the dictator's assessment and plan as written ,documented as a scribe. Based on total visit time, I have performed more than 50% of the visit. Any additional findings or plans will be noted. Objective - Vital Signs Vital signs: Vital Signs Temp 98 F 01/11/24 11:01 Pulse 68 01/11/24 11:01 Resp 16 01/11/24 11:01 BP 105/72 01/11/24 11:01 Pulse Ox 98 01/11/24 11:01 FiO2 Intake & Output 01/10/24 01/11/24 01/11/24 18:59 06:59 18:59 Intake Total 585 180 Output Total 600 Balance 585 -600 180 Weight 68.039 kg Intake: IV 5 Invasive Line 2 5 Oral 580 180 Output: Urine 600 Other: Voiding Method Urinal Urinal - Labs CBC & Chem 7: 01/11/24 10:27 01/11/24 10:27 Labs: Abnormal Lab Results - Last 24 Hours (Table) 01/10/24 01/10/24 01/11/24 Range/Units 18:10 23:49 10:27 RBC 3.86 L (4.30-5.90) m/uL Hgb 11.9 L (13.0-17.5) gm/dL Hct 38.6 L (39.0-53.0) % Plt Count 127 L (150-450) k/uL BUN (9-20) mg/dL Creatinine (0.66-1.25) mg/dL Glucose (74-99) mg/dL POC Glucose (mg/dL) 116 H 114 H (70-110) mg/dL Calcium (8.4-10.2) mg/dL AST (17-59) U/L ALT (4-49) U/L Creatine Kinase (55-170) U/L Total Protein (6.3-8.2) g/dL Albumin (3.5-5.0) g/dL 01/11/24 Range/Units 10:27 RBC (4.30-5.90) m/uL Hgb (13.0-17.5) gm/dL Hct (39.0-53.0) % Plt Count (150-450) k/uL BUN 7 L (9-20) mg/dL Creatinine 1.38 H (0.66-1.25) mg/dL Glucose 72 L (74-99) mg/dL POC Glucose (mg/dL) (70-110) mg/dL Calcium 7.9 L (8.4-10.2) mg/dL AST 111 H (17-59) U/L ALT 196 H (4-49) U/L Creatine Kinase 299 H (55-170) U/L Total Protein 5.8 L (6.3-8.2) g/dL Albumin 3.0 L (3.5-5.0) g/dL Microbiology - Last 24 Hours (Table) 01/08/24 14:47 Blood Culture - Preliminary Blood
[2024-01-11 15:52] LABS: Glucose,Whole Blood 94 mg/dL (70-110)
[2024-01-11 19:26] LABS: Glucose,Whole Blood 88 mg/dL (70-110)
[2024-01-11 21:56] LABS: Glucose,Whole Blood 85 mg/dL (70-110)
[2024-01-12] LABS: Glucose,Whole Blood 76 mg/dL (70-110)
[2024-01-12 02:10] LABS: Glucose,Whole Blood 98 mg/dL (70-110)
[2024-01-12 03:07] LABS: Glucose,Whole Blood 69 mg/dL (70-110)
[2024-01-12 03:24] LABS: Glucose,Whole Blood 70 mg/dL (70-110)
[2024-01-12] MEDS: DEXTROSE 50% SYRINGE 50 ML IVP PRN (03:28)
[2024-01-12 03:50] LABS: Glucose,Whole Blood 139 mg/dL (70-110)
[2024-01-12 03:53] VITALS: RESP 16
[2024-01-12 05:25] LABS: Glucose,Whole Blood 63 mg/dL (70-110)
[2024-01-12 05:43] LABS: Glucose,Whole Blood 116 mg/dL (70-110)
[2024-01-12] MEDS: ONDANSETRON 4 MG/2 ML VIAL IVP STA (06:54)
[2024-01-12 07:56] LABS: Glucose,Whole Blood 85 mg/dL (70-110)
[2024-01-12 10:05] LABS: Glucose,Whole Blood 95 mg/dL (70-110)
[2024-01-12 11:31] LABS: ALT 192 U/L (4-49); AST 102 U/L (17-59); African American GFR (CKD) 69 (>60 ml/min/1.73 sqM); Albumin 3.6 g/dL (3.5-5.0); Alkaline Phosphatase 42 U/L (38-126); Anion Gap 1 mmol/L; Blood Urea Nitrogen 7 mg/dL (9-20); Calcium 8.7 mg/dL (8.4-10.2); Carbon Dioxide 32 mmol/L (22-30); Chloride 103 mmol/L (98-107); Creatine Kinase 236 U/L (55-170); Glucose 74 mg/dL (74-99); Magnesium 1.8 mg/dL (1.6-2.3); Non-African American GFR(CKD) 60 (>60 ml/min/1.73 sqM); Potassium 4.3 mmol/L (3.5-5.1); Sodium 136 mmol/L (137-145); Total Bilirubin 0.5 mg/dL (0.2-1.3); Total Protein 6.7 g/dL (6.3-8.2)
[2024-01-12 11:33] LABS: Glucose,Whole Blood 82 mg/dL (70-110)
[2024-01-12 13:13] LABS: Glucose,Whole Blood 108 mg/dL (70-110)
--- NOTE | 2024-01-12 13:50 | P.DS ---
Providers Date of admission: 01/08/24 13:48 Expected date of discharge: 01/12/24 Attending physician: Linette Swenson Consults: 01/08/24 13:47 Consult Physician Urgent Consulting Provider: Solomon Armas Reason/Comments: Suicidal attempt Do you want consulting provider notified?: Already Contacted Primary care physician: Scot Tran Hospital Course: Final diagnosis Severe hypoglycemia, possibly secondary to intentional overdose of insulin with suicidal ideation Mild acute rhabdomyolysis with lactic acidemia, nontraumatic, elevated LFTs, trending down Thrombocytopenia Severe depression and suicidal ideation History of musculoskeletal disorder GI prophylaxis DVT prophylaxis Full code Discharge disposition Patient is being discharged in a stable condition with guarded prognosis to 3 W. for further psychiatric evaluation. Patient will follow-up with Dr. Tran in the outpatient setting upon discharge. Patient will need outpatient follow-up with [facility]. Total time taken is greater than 35 minutes. Hospital course This is a 48-year-old male who was recently admitted with suicidal ideation with concerns of intentional overdose on 's insulins. Patient's recently and patient has been extremely depressed with suicidal ideations. Patient being closely monitored on the medical unit for severe hypoglycemia secondary to intentional insulin usage. Patient evaluated by psych recommending inpatient psychiatric care and further evaluation. Patient is medically stable and recommend to continue monitoring Accu-Cheks before meals and at bedtime and 2 AM to monitor for any further events of hypoglycemia. Currently no reports of chest pain, shortness of breath, or palpitations. Patient is afebrile. No reports of nausea or vomiting and patient is tolerating diet. Patient will be transferred to 3 [facility]. psychiatric unit today. Overall guarded prognosis Physical exam: Gen: This is a 48-year-old male who is awake, alert and oriented x 3, well- developed, well-nourished HEENT: Head is atraumatic, normocephalic. Pupils equal, round. Sclerae is anicteric. NECK: Supple. No JVD. No lymphadenopathy. No thyromegaly. LUNGS: Clear to auscultation. No wheezes or rhonchi. No intercostal retractions. HEART: Regular rate and rhythm. No murmur. ABDOMEN: Soft. Bowel sounds are present. No masses. No tenderness. EXTREMITIES: No pedal edema. No calf tenderness. NEUROLOGICAL: Patient is awake, alert and oriented x3. Cranial nerves 2 through 12 are grossly intact. Please refer to medication reconciliation sheet for a list of medications. The impression and plan of care has been dictated by Marjorie Sampson, Nurse Practitioner as directed. Dr. Messi MD I have performed a history and examination and MDM of this patient, discussed the same with the dictator, and agree with the dictator's assessment and plan as written ,documented as a scribe. Based on total visit time, I have performed more than 50% of the visit. Patient Condition at Discharge: Stable Plan - Discharge Summary New Discharge Prescriptions: New Pantoprazole Sodium [Protonix] 40 mg PO DAILY #30 tab Folic Acid 1 mg PO DAILY #30 tablet Multivitamins, Thera [Multivitamin] 1 tab PO DAILY #30 tablet Thiamine [Vitamin B-1] 100 mg PO DAILY #30 tablet Discharge Medication List Folic Acid 1 mg PO DAILY #30 tablet 01/12/24 [Rx] Multivitamins, Thera [Multivitamin] 1 tab PO DAILY #30 tablet 01/12/24 [Rx] Pantoprazole Sodium [Protonix] 40 mg PO DAILY #30 tab 01/12/24 [Rx] Thiamine [Vitamin B-1] 100 mg PO DAILY #30 tablet 01/12/24 [Rx] Follow up Appointment(s)/Referral(s): Scot Tran MD [Primary Care Provider] - 1-2 days Activity/Diet/Wound Care/Special Instructions: Patient is medically stable for transfer to psych today for continued psychiatric evaluation Follow-up with primary care provider on discharge Continue taking medications as prescribed Follow-up [facility] outpatient Discharge Disposition: TRANSFER TO PSYCH HOSP/UNIT
[2024-01-12 15:04] LABS: Glucose,Whole Blood 71 mg/dL (70-110)
[2024-01-12 16:39] LABS: Glucose,Whole Blood 84 mg/dL (70-110)
[2024-01-12 20:10] LABS: Glucose,Whole Blood 75 mg/dL (70-110)
[2024-01-12 20:48] VITALS: BP 111/73; PULSE 73; TEMP 98.4
== END 2024-01-12 20:44 | DRG 817 ==
LOC: EC 10:16 → 5NMEDONC 13:48 → 3SCARD 20:16 → UNDODISIN 01-12 20:43
PROVIDERS: ADMIT Hospitalist; ATTEND Hospitalist
DX: T38.3X2A Poisoning by insulin and oral hypoglycemic [antidiabetic] drugs, intentional self-harm, initial encounter (principal); E16.0 Drug-induced hypoglycemia without coma; D69.6 Thrombocytopenia, unspecified; F32.A Depression, unspecified; M62.82 Rhabdomyolysis; E87.20 Acidosis, unspecified; F32.3 Major depressive disorder, single episode, severe with psychotic features; Z11.52 Encounter for screening for COVID-19; Z63.4 Disappearance and death of family member
CPT/HCPCS: 36415; 71046; 80053; 80143; 80179; 81001; 82075; 82550; 83036; 83605; 83735; 84484; 85025; 87040; 87635; 93005; 96361; 96374; 99291

== ENCOUNTER 2024-01-12 18:29 | Inpatient (IN) | payer MEDICAID ==
[2024-01-12] MEDS ORDERED: MAG HYDROX/AL HYDROX/SIMETH 355 ML BOTTLE PO PRN (18:43)
[2024-01-12] MEDS ORDERED: IBUPROFEN 600 MG TAB PO PRN (18:43)
[2024-01-12] MEDS ORDERED: ACETAMINOPHEN TAB 325 MG TAB PO PRN (18:43)
[2024-01-12] MEDS ORDERED: LORazepam 1 MG TAB PO PRN (18:45)
[2024-01-12] MEDS ORDERED: hydrOXYzine HCL 50 MG/ML 1 ML VIAL IM PRN (18:45)
[2024-01-12] MEDS ORDERED: hydrOXYzine HCL 25 MG TAB PO PRN (18:45)
[2024-01-12] MEDS ORDERED: traZODone HCL 50 MG TAB PO PRN (18:45)
[2024-01-12] MEDS ORDERED: LORazepam 2 MG/ML INJ IM PRN (18:45)
[2024-01-12 21:14] LABS: Glucose,Whole Blood 86 mg/dL (70-110)
[2024-01-13 02:14] LABS: Glucose,Whole Blood 81 mg/dL (70-110)
[2024-01-13 07:56] LABS: Glucose,Whole Blood 85 mg/dL (70-110)
[2024-01-13 08:36] LABS: Glucose,Whole Blood 63 mg/dL (70-110)
[2024-01-13] MEDS: THIAMINE 100 MG TAB PO SCH (08:39)
[2024-01-13] MEDS: MULTIVITAMINS, THERA 1 EACH TAB PO SCH (08:39)
[2024-01-13] MEDS: FOLIC ACID 1 MG TAB PO SCH (08:39)
[2024-01-13] MEDS: PANTOPRAZOLE 40 MG TABLET PO SCH (08:39)
[2024-01-13 08:59] LABS: Basophils # (A) 0.1 k/uL (0-0.2); Basophils % (A) 1 %; Eosinophils # (A) 0.1 k/uL (0-0.7); Eosinophils % (A) 2 %; HGB 14.8 gm/dL (13.0-17.5); Lymphocytes % (A) 32 %; MCH 31.3 pg (25.0-35.0); MCHC 31.4 g/dL (31.0-37.0); MCV 99.7 fL (80.0-100.0); Macrocytosis Slight; Mean Platelet Volume 8.4; Monocytes # (A) 0.3 k/uL (0-1.0); Monocytes % (A) 5 %; Neutrophils # (A) 3.8 k/uL (1.3-7.7); Neutrophils % (A) 59 %; Platelet Count 174 k/uL (150-450); RBC 4.72 m/uL (4.30-5.90); RDW 14.5 % (11.5-15.5); WBC 6.4 k/uL (3.8-10.6)
[2024-01-13] MEDS ORDERED: NICOTINE 14MG/24HR PATCH TRANSDERM SCH (09:00)
[2024-01-13 09:03] LABS: Glucose,Whole Blood 78 mg/dL (70-110)
[2024-01-13 09:26] LABS: ALT 163 U/L (4-49); AST 73 U/L (17-59); African American GFR (CKD) 76 (>60 ml/min/1.73 sqM); Albumin 4.3 g/dL (3.5-5.0); Alkaline Phosphatase 47 U/L (38-126); Anion Gap 8 mmol/L; Blood Urea Nitrogen 9 mg/dL (9-20); Calcium 9.2 mg/dL (8.4-10.2); Carbon Dioxide 26 mmol/L (22-30); Chloride 104 mmol/L (98-107); Glucose 79 mg/dL (74-99); Non-African American GFR(CKD) 66 (>60 ml/min/1.73 sqM); Potassium 4.3 mmol/L (3.5-5.1); Sodium 138 mmol/L (137-145); Total Bilirubin 0.7 mg/dL (0.2-1.3); Total Protein 7.7 g/dL (6.3-8.2)
[2024-01-13] MEDS: SERTRALINE 25 MG TAB PO ONE (12:16)
[2024-01-13 12:19] LABS: Glucose,Whole Blood 84 mg/dL (70-110)
--- NOTE | 2024-01-13 12:27 | P.HP ---
Psychiatric H&P - . H&P Date: 01/13/24 History & Physical: Allergies Allergy/AdvReac Type Severity Reaction Status Date / Time No Known Allergies Allergy Verified 01/10/24 08:30 Vital Signs Temp 97.5 F L 01/13/24 06:31 Pulse 113 H 01/13/24 06:31 Resp 16 01/13/24 06:31 BP 99/76 01/13/24 06:31 Pulse Ox 99 01/12/24 21:29 FiO2 Intake & Output 01/12/24 01/13/24 01/13/24 18:59 06:59 18:59 Weight 68.039 kg 71.016 kg Laboratory Last Values WBC 6.4 k/uL (3.8-10.6) 01/13/24 08:32 RBC 4.72 m/uL (4.30-5.90) 01/13/24 08:32 Hgb 14.8 gm/dL (13.0-17.5) 01/13/24 08:32 Hct 47.0 % (39.0-53.0) 01/13/24 08:32 MCV 99.7 fL (80.0-100.0) 01/13/24 08:32 MCH 31.3 pg (25.0-35.0) 01/13/24 08:32 MCHC 31.4 g/dL (31.0-37.0) 01/13/24 08:32 RDW 14.5 % (11.5-15.5) 01/13/24 08:32 Plt Count 174 k/uL (150-450) 01/13/24 08:32 MPV 8.4 01/13/24 08:32 Neutrophils % 59 % 01/13/24 08:32 Lymphocytes % 32 % 01/13/24 08:32 Monocytes % 5 % 01/13/24 08:32 Eosinophils % 2 % 01/13/24 08:32 Basophils % 1 % 01/13/24 08:32 Neutrophils # 3.8 k/uL (1.3-7.7) 01/13/24 08:32 Lymphocytes # 2.0 k/uL (1.0-4.8) 01/13/24 08:32 Monocytes # 0.3 k/uL (0-1.0) 01/13/24 08:32 Eosinophils # 0.1 k/uL (0-0.7) 01/13/24 08:32 Basophils # 0.1 k/uL (0-0.2) 01/13/24 08:32 Macrocytosis Slight 01/13/24 08:32 POC Glucose (mg/dL) 63 mg/dL (70-110) L 01/13/24 08:34 POC Glu Claim Processing Specialist ID Joleen Lema 01/13/24 08:34 01/13/24 09:02 IDENTIFYING DATA: Patient is a 48 year old, , male,, who lives [place], [place] in a trailer, with a roommate. Unemployed. One child. HPI: Patient presented to the hospital ED on 01/07. Initially, he was admitted medically. Dr. Corea followed up with him on the medical floor for consult. As per the consult note, " The patient presented to ER with unresponsive with hypoglycemia, and hypothermia. After initial examination and other work-up he was transferred to medical floor for further management. During this evaluation, the patient reported that his 10 months ago. Following her , he started losing interest in doing things, lost energy, motivation, isolated himself, ignoring paying his bill, neglecting himself, and finally got to the point that he decided to end his life. He injected himself with his wifes insulin. He was found passed by his roommate, who call the EMS and got brought to the Hospital. The patient noted that he has never had such an episode in the past, He has never been under psychiatric treatment in the past. 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 After her the patient tried to find a job but got denied because no h/o work for 14 years. This further contributed to worsening of depression with feelings of worthlessness and hopelessness. He denied thought of harming anybody. He denied any symptoms consistent with psychosis." Today, he states stupidity brought him in. He has been having increasing sadness since the passing of his last February. He states that so many people rely on him for help, and he was tired of it. Patient stated he had a "master plan" to kill himself on the 10 month anniversary of his 's . The plan was to overdose on his wifes old insulin. He was going to take all of the insulin in the house and just go asleep. He states he took around 200 units of humalog, 80 units of lantus, and 30 units of trulicity. Then he closed and locked the door. His room mate needed to speak with him, so we went out to talk to her, and passed out in front of her, and woke up in the ER. Patient is making light of the situation. Patient also states that his electricity at his house got shut off, and he is not having any luck finding work. 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 He states today, he is no longer having suicidal thoughts, and that he just wants to be a hermit. He does have a couple people for support that check on him occasionally. He states his sleep is broken, and his appetite is horrible. Patient denies any suicidal or homicidal ideations intent or plan. At this time patient denies any auditory or visual hallucinations. Patient denies any flight of ideas racing thoughts and increased in goal directed behavior. Patient admits to using chewing tobacco. PAST PSYCHIATRIC HISTORY: Patient states that he has never been under psychiatric care. He has never been admitted psychiatrically. He does not take any psychiatric medications. He has attempted suicide recently by cutting his wrist. PMH:As per ER note ALLERGIES: as per EMR CHEMICAL DEPENDENCY HISTORY: as per HPI FAMILY PSYCHIATRIC/SUBSTANCE USE HISTORY: unknown as patient was adopted SOCIAL HISTORY: Patient was born and raised in [place], [place]. Patient was adopted at age 5. Patient has a GED. , lives in a trailer with a room mate. States he was in penitentiary for breaking and entering. MENTAL STATUS EXAM: General Appearance: Patient appears to be older than stated age. Balding, unshaven, short and thin in stature, is alert, directable, and attempts to cooperate. Patient appears to have adequate hygiene and grooming. Behavior: Patient is seated without any agitated behavior. Guarded. laughing inappropriately when talking about his suicide attempt Speech: Patient's speech is fluent and nonpressured. Laughing inappropriately regarding suicide attempt. Mood/Affect: Patient reports their mood is depressed, affect is congruent and constricted. concrete Suicidality/Homicidality: Patient denies having any homicidal ideation intent or plan. Denies any suicidal ideations intent or plan Perceptions: Patient denies any visual hallucinations and denies any auditory hallucinations loose associations. Though content/process: There is no evidence of any delusional thought content and thought process Circumstantial/tangential. Memory and concentration: AOX3, grossly intact for the purposes of this session. Can spell "WORLD" backwards Judgment and insight: Poor STRENGTHS/WEAKNESSES: strength is that patient is resilient. Weakness is that patient has poor judgment and is impulsive INTELLECT: Average IMPRESSIONS: Suicide Attempt by overdose of medication Major depressive disorder, unspecified, without psychotic features Nicotine dependance PLAN: -Patient is admitted under voluntary status to MHU for stabilization of psychiatric symptoms and safety. Patient has signed [adult voluntary form and medication consent and is placed in patient's chart. -Medications : Will start patient on Zoloft 50mg po daily for d epression/anxiety,give 25mg now, then start 50mg tomorrow, 01/13, trazodone 25mg qhs for sleep -Ativan and Haldol PRN for agitation/aggression -Patient was informed of the risks, benefits and side effects of the medication and patient verbally consented to taking the medications. -Internal Medicine consult to perform medical evaluation and physical. -NRT - nicotine patch -SW on board for discharge planning. Encourage patient to participate in groups to work on coping skills.
[2024-01-13 13:08] VITALS: BMI 21.8
[2024-01-13 13:20] LABS: T4, Free (Free Thyroxine) 0.09 ng/dL (0.78-2.19)
[2024-01-13 17:43] LABS: Glucose,Whole Blood 97 mg/dL (70-110)
[2024-01-13 20:19] LABS: Glucose,Whole Blood 77 mg/dL (70-110)
[2024-01-13] MEDS: traZODone HCL 50 MG TAB PO SCH (20:20)
[2024-01-14 01:53] LABS: Glucose,Whole Blood 83 mg/dL (70-110)
--- NOTE | 2024-01-14 05:26 | P.MDCNMH ---
History of Present Illness H&P Date: 01/13/24 This is a pleasant 48-year-old male who presented to the emergency department with suicidal ideation with suicidal attempt and intentional overdose with insulin and diabetic medications. Patient reports he follows with Dr. Tran in the outpatient setting although has not seen a doctor in quite some time and quit taking medications as he felt they were not needed. Patient has been having increased depression with suicidal ideation and apparently took some of his 's insulin with suicidal ideations. Patient passed sometime ago and has been increasingly depressed since. Patient reports to having a past medical history of a musculoskeletal disorder along with acid reflux and hypoth yroidism although has not been taking medications. TSH found to be extremely elevated and will obtain T3 free and T4 free. Initiate levothyroxine and this was discussed with the patient. Patient is continued on Accu-Cheks before meals and at bedtime and would continue at 2 AM as well to monitor blood sugars. Patient encouraged to eat regular diet and will continue monitoring the blood sugars. Patient has been voluntarily admitted to [facility] for further psychiatric care and evaluation. REVIEW OF SYSTEMS: CONSTITUTIONAL: No fever, no malaise, no fatigue. HEENT: No recent visual problems or hearing problems. Denied any sore throat. CARDIOVASCULAR: No chest pain, orthopnea, PND, no palpitations, no syncope. PULMONARY: No shortness of breath, no cough, no hemoptysis. GASTROINTESTINAL: No diarrhea, no nausea, no vomiting, no abdominal pain. NEUROLOGICAL: No headaches, no weakness, no numbness. HEMATOLOGICAL: Denies any bleeding or petechiae. GENITOURINARY: Denies any burning micturition, frequency, or urgency. MUSCULOSKELETAL/RHEUMATOLOGICAL: Denies any joint pain, swelling, or any muscle pain. ENDOCRINE: Denies any polyuria or polydipsia. The rest of the 14-point review of systems is negative. PHYSICAL EXAMINATION: GENERAL: The patient is alert and oriented x3, not in any acute distress. Well developed, well nourished. Thin built, elderly appearing HEENT: Pupils are round and equally reacting to light. EOMI. No scleral icterus. No conjunctival pallor. Normocephalic, atraumatic. No pharyngeal erythema. No thyromegaly. CARDIOVASCULAR: S1 and S2 present. No murmurs, rubs, or gallops. PULMONARY: Chest is clear to auscultation, no wheezing or crackles. ABDOMEN: Soft, thin. Nontender, nondistended, normoactive bowel sounds. No palpable organomegaly. MUSCULOSKELETAL: No joint swelling or deformity. EXTREMITIES: No cyanosis, clubbing, or pedal edema. NEUROLOGICAL: Gross neurological examination did not reveal any focal deficits. SKIN: No rashes. Pale Assessment: Suicidal ideation with intentional attempted overdose with insulin Severe depression History of GERD History of musculoskeletal disorders Hypothyroidism Noncompliance with medications and follow-up Moderate protein calorie malnutrition with BMI 21.8 EtOH use Former smoker Full code Plan: Patient was on the medical unit and monitored with continued blood sugars with suspected intentional overdose with insulins blood sugars have been in the 60s to 80s Recommend continuing monitoring Accu-Cheks before meals and at bedtime as well as 2 AM and as needed Encouraged oral intake with regular diet TSH was found to be over 100 and will obtain T3 free and T4 free and initiate levothyroxine 100 mcg. Patient will need close outpatient follow-up with repeat labs Encouraged compliance with medications and group therapy sessions Thank you kindly for this consultation The impression and plan of care has been dictated by Marjorie Sampson, Nurse Practitioner as directed. Dr. Tomas MD I have performed a history and examination and MDM of this patient, discussed the same with the dictator, and agree with the dictator's assessment and plan as written ,documented as a scribe. Based on total visit time, I have performed more than 50% of the visit. Past Medical History Past Medical History: Musculoskeletal Disorder Additional Past Medical History / Comment(s): Acid reflux History of Any Multi-Drug Resistant Organisms: None Reported Past Surgical History: Back Surgery Past Anesthesia/Blood Transfusion Reactions: No Reported Reaction Smoking Status: Former smoker Medications and Allergies Home Medications Medication Instructions Recorded Confirmed Type Folic Acid 1 mg PO DAILY #30 tablet 01/12/24 Rx Multivitamins, Thera [Multivitamin] 1 tab PO DAILY #30 tablet 01/12/24 Rx Pantoprazole Sodium [Protonix] 40 mg PO DAILY #30 tab 01/12/24 Rx Thiamine [Vitamin B-1] 100 mg PO DAILY #30 tablet 01/12/24 Rx Allergies Allergy/AdvReac Type Severity Reaction Status Date / Time No Known Allergies Allergy Verified 01/10/24 08:30 Physical Exam Vitals: Vital Signs Temp Pulse Resp BP Pulse Ox 01/13/24 06:31 97.5 F L 113 H 16 99/76 01/12/24 21:29 98.5 F 92 18 113/72 99 Intake and Output 01/12/24 01/13/24 01/13/24 22:59 06:59 14:59 Other: Weight 71.016 kg Cranial Nerve Examination - Cranial Nerves Cranial Nerve I- Olfactory: Intact Cranial Nerve II- Optic: Intact Cranial Nerve III- Oculomotor: Intact Cranial Nerve IV- Trochlear: Intact Cranial Nerve V- Trigeminal: Intact Cranial Nerve - Abducens: Intact Cranial Nerve VII- Facial: Intact Cranial Nerve VIII- Auditory: Intact Cranial Nerve IX- Glossopharyngeal: Intact Cranial Nerve X- Vagus: Intact Cranial Nerve XI- Accessory: Intact Cranial Nerve XII- Hypoglossal: Intact Results CBC & Chem 7: 01/13/24 08:32 01/13/24 08:32 Labs: Abnormal Lab Results - Last 24 Hours (Table) 01/13/24 01/13/24 Range/Units 08:32 08:34 Creatinine 1.28 H (0.66-1.25) mg/dL POC Glucose (mg/dL) 63 L (70-110) mg/dL AST 73 H (17-59) U/L ALT 163 H (4-49) U/L Assessment and Plan Time with Patient: Less than 30
[2024-01-14] MEDS ORDERED: LEVOTHYROXINE 50 MCG TAB PO SCH (06:30)
[2024-01-14] MEDS: LEVOTHYROXINE 100 MCG TAB PO SCH (06:30)
[2024-01-14] MEDS: SERTRALINE 50 MG TAB PO SCH (08:10)
[2024-01-14 08:11] LABS: Glucose,Whole Blood 69 mg/dL (70-110)
[2024-01-14 08:23] LABS: Glucose,Whole Blood 72 mg/dL (70-110)
--- NOTE | 2024-01-14 12:33 | P.PN ---
Progress Note - Text Progress Note Date: 01/14/24 Interval History: [facility] and was directable and agreeable to speak with parts data writer in the office.Patient states he is doing fine today. When asked if he is noticing any improvement in his mood, he states he does not know. He complains of his stomach being upset a little bit, but that is the only thing he is noticing. Patient states his appetite is ok, however the food is not very good. Patient is still fairly concrete. He states he is trying to forgive himself for what he has done. Patient does not go to groups, he states he would rather sit and write. At this time patient denies any suicidal or homicidal ideations, intent or plan. Patient denies any auditory, visual hallucinations and denies any paranoia or delusions. Patient denies any side effects from the medications and has been compliant with meds. MENTAL STATUS EXAM: General Appearance: Patient appears to be older than stated age. Balding, unshaven, short and thin in stature, is alert, directable, and attempts to cooperate. Patient appears to have adequate hygiene and grooming. Behavior: Patient is seated without any agitated behavior. Guarded. Speech: Patient's speech is fluent and nonpressured. Mood/Affect: Patient reports their mood is depressed, affect is congruent and constricted. concrete Suicidality/Homicidality: Patient denies having any homicidal ideation intent or plan. Denies any suicidal ideations intent or plan Perceptions: Patient denies any visual hallucinations and denies any auditory hallucinations loose associations.mildly improving Though content/process: There is no evidence of any delusional thought content and thought process, Circumstantial/tangential.mildly improving Memory and concentration: AOX3, grossly intact for the purposes of this session. Judgment and insight: Poor, mildly improving IMPRESSIONS: Suicide Attempt by overdose of medication Major depressive disorder, unspecified, without psychotic features Nicotine dependance PLAN: -Patient is admitted under voluntary status to [facility] for stabilization of psychiatric symptoms and safety. Patient has signed [adult voluntary form and medication consent and is placed in patient's chart. -Medications : Zoloft 50 mg po daily for depression/anxiety, trazodone 25mg qhs for sleep -Ativan and Haldol PRN for agitation/aggression -NRT - nicotine patch -SW on board for discharge planning. Encourage patient to participate in groups to work on coping skills.Likely discharge early next week, if patient continues to improve.
[2024-01-14 13:02] LABS: Glucose,Whole Blood 87 mg/dL (70-110)
[2024-01-14 15:27] LABS: Glucose,Whole Blood 132 mg/dL (70-110)
[2024-01-14] MEDS: SIMETHICONE 40 MG/0.6 ML DROPS 2,000 MG/30 ML BOTTLE PO SCH (15:47)
[2024-01-14 20:09] LABS: Glucose,Whole Blood 107 mg/dL (70-110)
[2024-01-15 02:15] LABS: Glucose,Whole Blood 81 mg/dL (70-110)
[2024-01-15 08:31] LABS: Glucose,Whole Blood 79 mg/dL (70-110)
--- NOTE | 2024-01-15 10:52 | P.PN ---
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 and now has to consider looking for a job He states that he is living with her old roommate who is 600 pounds Patient acted very shocked when asked if this was is gone from as stated that he can't stand her Patient currently is admits that he is dealing with depression He denies any suicidal plans or ideations at this time Reviewing the chart also reveals that the patient has been withdrawn and not participating much in any activities patient is encouraged to get involved in no therapy and groups which with to help him with his coping skills MENTAL STATUS EXAM: General Appearance: Patient appears to be older than stated age. , unshaven, short and thin in stature, is alert, Patient appears to have adequate hygiene and grooming. Behavior: Patient is laying down without any agitated behavior. remains rather superficial and vague Speech: Patient's speech is fluent and nonpressured. Mood/Affect: Patient reports their mood is depressed, affect is congruent and constricted. appears to have difficulty with trust issues Suicidality/Homicidality: Patient denies having any homicidal ideation intent or plan. Perceptions: Patient denies any visual hallucinations and denies any auditory hallucinations loose associations.mildly improving Though content/process: There is no evidence of any delusional thought content and thought process, Circumstantial/tangential.mildly improving Memory and concentration: AOX3, grossly intact for the purposes of this session. Judgment and insight: appears to have some insight IMPRESSIONS: Suicide Attempt by overdose of medication Major depressive disorder, unspecified, without psychotic features Nicotine dependance chronic grief reaction PLAN: agree with the current treatment plan -Patient is admitted under voluntary status to [facility] for stabilization of psychiatric symptoms and safety. Patient has signed [adult voluntary form and medication consent and is placed in patient's chart. -Medications : Zoloft 50 mg po daily for depression/anxiety, trazodone 25mg qhs for sleep -Ativan and Haldol PRN for agitation/aggression -NRT - nicotine patch -SW on board for discharge planning. Encourage patient to participate in groups to work on coping skills .Solomon Armas M.D. Objective - Vital Signs Vital signs: Vital Signs Temp 98.5 F 01/15/24 06:23 Pulse 75 01/15/24 06:23 Resp 14 01/15/24 06:23 BP 83/50 01/15/24 06:23 Pulse Ox 99 01/12/24 21:29 FiO2 - Labs CBC & Chem 7: 01/13/24 08:32 01/13/24 08:32 Labs: Abnormal Lab Results - Last 24 Hours (Table) 01/14/24 Range/Units 15:23 POC Glucose (mg/dL) 132 H (70-110) mg/dL
[2024-01-15 12:59] LABS: Glucose,Whole Blood 77 mg/dL (70-110)
[2024-01-15] MEDS: MAGNESIUM HYDROXIDE 2,400 MG/30 ML CUP PO PRN (16:28)
[2024-01-15 18:02] LABS: Glucose,Whole Blood 76 mg/dL (70-110)
[2024-01-15 19:58] LABS: Glucose,Whole Blood 97 mg/dL (70-110)
[2024-01-15 22:01] LABS: Glucose,Whole Blood 85 mg/dL (70-110)
[2024-01-16 02:20] LABS: Glucose,Whole Blood 84 mg/dL (70-110)
[2024-01-16 07:53] LABS: Glucose,Whole Blood 68 mg/dL (70-110)
--- NOTE | 2024-01-16 10:27 | P.PN ---
Subjective Progress Note Date: 01/16/24 Principal diagnosis: IMPRESSIONS: Suicide Attempt by overdose of medication Major depressive disorder, unspecified, without psychotic features Chronic grief reaction Nicotine dependance Patient Name: Kehinde Stewart Date of : 75 Patient Status: Inpatient Attending Provider: Max Alaniz Date: 01/16/24 Initialization Date: 01/14/24 08:41 subjective data: The patient was seen chart was reviewed and case discussed with the nursing staff patient at this time reports that he has no issues or concerns that he would like to talk about Patient remains withdrawn and superficial Responses are monosyllabic Affect at this time remains flat to downcast Self-esteem and confidence remains low Motivation for verbalization as well as the motivation at this time for participation on the rahman activities remains rather limited MENTAL STATUS EXAM: General Appearance: Patient appears to be older than stated age. , unshaven, short and thin in stature, is alert, Patient appears to have adequate hygiene and grooming. Behavior: Patient is laying down without any agitated behavior. remains rather superficial and vague Speech: Patient's speech is fluent and nonpressured. Mood/Affect: Patient reports their mood is depressed, affect is congruent and constricted. appears to have difficulty with trust issue s Suicidality/Homicidality: Patient denies having any homicidal ideation intent or plan. Perceptions: Patient denies any visual hallucinations and denies any auditory hallucinations loose associations.mildly improving Though content/process: There is no evidence of any delusional thought content a nd thought process, Circumstantial/tangential.mildly improving Memory and concentration: AOX3, grossly intact for the purposes of this session. Judgment and insight: appears to have some insight IMPRESSIONS: Suicide Attempt by overdose of medication Major depressive disorder, unspecified, without psychotic features Nicotine dependance chronic grief reaction PLAN: agree with the current treatment plan -Patient is admitted under voluntary status to [facility] for stabilization of psychiatric symptoms and safety. Patient has signed [adult voluntary form and medication consent and is placed in patient's chart. -Medications : Zoloft 50 mg po daily for depression/anxiety, trazodone 25mg qhs for sleep -Ativan and Haldol PRN for agitation/aggression -NRT - nicotine patch -SW on board for discharge planning. Encourage patient to participate in groups to work on coping skills .Solomon Armas M.D. Objective - Vital Signs Vital signs: Vital Signs Temp 97.9 F 01/16/24 06:42 Pulse 83 01/16/24 09:18 Resp 15 01/16/24 09:18 BP 109/58 01/16/24 09:18 Pulse Ox 97 01/16/24 09:18 FiO2 Intake & Output 01/15/24 01/16/24 01/16/24 18:59 06:59 18:59 Weight 71.532 kg - Labs CBC & Chem 7: 01/13/24 08:32 01/13/24 08:32 Labs: Abnormal Lab Results - Last 24 Hours (Table) 01/16/24 Range/Units 07:51 POC Glucose (mg/dL) 68 L (70-110) mg/dL
[2024-01-16 11:22] LABS: Glucose,Whole Blood 76 mg/dL (70-110)
[2024-01-16] MEDS: LACTULOSE 20 GM/30 ML CUP PO ONE (12:20)
[2024-01-16 12:53] LABS: Glucose,Whole Blood 77 mg/dL (70-110)
[2024-01-16 13:57] LABS: African American GFR (CKD) 69 (>60 ml/min/1.73 sqM); Anion Gap 7 mmol/L; Blood Urea Nitrogen 16 mg/dL (9-20); Calcium 9.3 mg/dL (8.4-10.2); Carbon Dioxide 31 mmol/L (22-30); Chloride 99 mmol/L (98-107); Glucose 72 mg/dL (74-99); Magnesium 2.1 mg/dL (1.6-2.3); Non-African American GFR(CKD) 60 (>60 ml/min/1.73 sqM); Potassium 4.3 mmol/L (3.5-5.1); Sodium 137 mmol/L (137-145)
[2024-01-16 14:11] LABS: Basophils % (A) 0 %; Eosinophils # (A) 0.1 k/uL (0-0.7); Eosinophils % (A) 2 %; HCT 42.4 % (39.0-53.0); HGB 13.9 gm/dL (13.0-17.5); Lymphocytes # (A) 1.6 k/uL (1.0-4.8); Lymphocytes % (A) 29 %; MCH 31.8 pg (25.0-35.0); MCHC 32.8 g/dL (31.0-37.0); MCV 96.9 fL (80.0-100.0); Mean Platelet Volume 9.5; Monocytes # (A) 0.4 k/uL (0-1.0); Monocytes % (A) 7 %; Neutrophils # (A) 3.3 k/uL (1.3-7.7); Neutrophils % (A) 60 %; Platelet Count 137 k/uL (150-450); RBC 4.38 m/uL (4.30-5.90); RDW 15.1 % (11.5-15.5); WBC 5.6 k/uL (3.8-10.6)
[2024-01-16 17:53] LABS: Glucose,Whole Blood 72 mg/dL (70-110)
[2024-01-16] MEDS ORDERED: bisacodyL 10 MG SUPP RECTAL PRN (18:39)
[2024-01-16] MEDS: DOCUSATE 100 MG CAP PO SCH (20:30)
[2024-01-16 20:59] LABS: Glucose,Whole Blood 91 mg/dL (70-110)
[2024-01-16 23:33] LABS: C-Peptide 2.38 ng/mL (0.81-3.85)
[2024-01-17 08:03] LABS: Glucose,Whole Blood 93 mg/dL (70-110)
[2024-01-17 12:55] LABS: Glucose,Whole Blood 79 mg/dL (70-110)
--- NOTE | 2024-01-17 14:03 | P.PN ---
Progress Note - Text Progress Note Date: 01/17/24 Clinical Problems: Suicide attempt by overdose of insulin medications, major depressive disorder unspecified, tobacco use disorder, hypothyroid Interim history: Chart reviewed and patient interviewed. We reviewed the history and the reason for his transfer from medicine to the psychiatric unit. He acknowledges that he intentionally attempted to overdose on his 's insulin. He attributed the action to multiple stressors including the of his , mounting financial problems, relationship issues and employment issues. He regrets the action in that his would have been disappointed him if she were aware of his action. He described future plans in including continuing to look for work and engaging more with his god-Daughter and her family. He is interested in engaging in individual therapy. The consulting calculation reviewer is aware of his hypothyroid state and is monitoring his liver enzymes. Mental status exam: He presented as a disheveled appearing middle-aged male who is pleasant and cooperative. He made eye contact and attends the interview. He showed no abnormality of psychomotor activity. His gait was slow but steady. His speech was spontaneous with slight decrease in rate but normal rhythm. His affect was depressed but reactive. No suicidal ideation, versus homicidal ideation. No depressive cognitions. Testicular was organized and goal-directed. No psychotic symptoms. Assessment: Continued symptoms of depression as well as financial and occupational issues. Denied suicidal thoughts, plan or intent. Plan: Continue sertraline 50 mg daily and trazodone 25 mg at bedtime, follow-up with medicine regarding hypothyroidism, acute renal failure and elevated liver functions. Evaluate clinical status and response to treatment on daily basis. Coordinate care with treatment team. Plan for discharge on 01/18/2024.
[2024-01-17 14:24] LABS: Hepatitis A Antibody IgM Nonreactive (Nonreactive); Hepatitis B Core IgM Nonreactive (Nonreactive); Hepatitis B Surface Antigen Nonreactive (Nonreactive); Hepatitis C IgG Antibody Nonreactive (Nonreactive)
[2024-01-17 17:47] LABS: Glucose,Whole Blood 68 mg/dL (70-110)
[2024-01-17 21:02] LABS: Glucose,Whole Blood 91 mg/dL (70-110)
[2024-01-18 07:39] LABS: Glucose,Whole Blood 83 mg/dL (70-110)
--- NOTE | 2024-01-18 12:30 | P.DS ---
Providers Date of admission: 01/12/24 20:45 Attending physician: Max Alaniz MD Consults: 01/12/24 18:43 Consult Physician Routine Consulting Provider: Jose Francisco [facility] Consult Reason/Comments: H&P Do you want consulting provider notified?: Yes Primary care physician: Stated None - Discharge Diagnosis(es) (1) Hypoglycemia Current Visit: Yes Status: Resolved Priority: High (2) Lactic acidosis Current Visit: Yes Status: Resolved Priority: Low (3) Suicide attempt Current Visit: Yes Status: Resolved Priority: High (4) Major depressive disorder Current Visit: Yes Status: Chronic Priority: Medium (5) Tobacco use Current Visit: No Status: Chronic Priority: Medium (6) Hypothyroidism Current Visit: No Status: Chronic Priority: Medium Hospital Course: HISTORY: Mr. Stewart is a 48-year-old male who presented to the [facility] unresponsive following an intentional overdose of his ex 's insulin. He was transferred to the psychiatric unit from the medical floor after he was medically treated for hypoglycemia and hypothermia. He complained that his 10 months ago. Following her he started losing interest, lost energy, motivation and isolating himself. He ignored paying bills and neglected himself. He injected himself with his 's insulin. His roommate found him and called the EMS. 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 After her he had no income and was unable to find work. He has no history of psychiatric treatment and he was never treated with psychotropic medications. HOSPITAL COURSE: We admitted him to the psychiatric unit under the care of Dr. Alaniz He received comprehensive biopsychosocial assessment. The consulting principal consulting engineer completed initial physical exam and recommended to monitor blood sugars. She noted that his TSH was over 100 and recommended to repeat start dose levothyroxine 100 mcg daily. We started him on sertraline 50 mg daily and prescribed trazodone 25 mg at bedtime for sleep. We monitored his POC glucose as recommended by the distributed energy systems consultant. POC glucose showed no aberrations. He participated in therapeutic groups and activities. His mood brightened and expressed more hopeless feelings. He regrets his actions and plans to engage in mental health services. MENTAL STATUS ON DISCHARGE: At the time of discharge he presented as a somewhat disheveled appearing middle-aged male who was pleasant and cooperative. He made eye contact and attentive to the interview. He had a blunted but bright facial expression. He showed no abnormality of psychomotor activity. Speech was spontaneous with normal rate, rhythm and volume. His affect was blunted but stable and appropriate. No suicidal ideation, versus homicidal ideation. No depressive cognitions. He is not obsessive or ruminative. No ideas of reference,. Ideation and delusions. His thinking was abstract associations were coherent. No hallucinations. DISPOSITION: Return to his former address. 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 Discharge medications listed below. Patient Condition at Discharge: Stable Plan - Discharge Summary Discharge Rx Participant: No New Discharge Prescriptions: New traZODone HCL [Desyrel] 25 mg PO HS #30 tab Acetaminophen Tab [Tylenol] 650 mg PO Q4HR PRN tab PRN Reason: Mild Pain (Scale 1 To 3) Levothyroxine Sodium [Synthroid] 100 mcg PO DAILY@0630 #30 tab Sertraline [Zoloft] 50 mg PO DAILY #30 tab Continue Pantoprazole Sodium [Protonix] 40 mg PO DAILY #30 tab Folic Acid 1 mg PO DAILY #30 tablet Multivitamins, Thera [Multivitamin (formulary)] 1 tab PO DAILY #30 tablet Thiamine [Vitamin B-1] 100 mg PO DAILY #30 tablet Discharge Medication List Folic Acid 1 mg PO DAILY #30 tablet 01/12/24 [Rx] Multivitamins, Thera [Multivitamin (formulary)] 1 tab PO DAILY #30 tablet 01/12/24 [Rx] Pantoprazole Sodium [Protonix] 40 mg PO DAILY #30 tab 01/12/24 [Rx] Thiamine [Vitamin B-1] 100 mg PO DAILY #30 tablet 01/12/24 [Rx] Acetaminophen Tab [Tylenol] 650 mg PO Q4HR PRN tab 01/18/24 [Rx] Levothyroxine Sodium [Synthroid] 100 mcg PO DAILY@0630 #30 tab 01/18/24 [Rx] Sertraline [Zoloft] 50 mg PO DAILY #30 tab 01/18/24 [Rx] traZODone HCL [Desyrel] 25 mg PO HS #30 tab 01/18/24 [Rx] Patient Instructions/Handouts: Depression (DC), Suicide Prevention (DC) Activity/Diet/Wound Care/Special Instructions: Avoid the use of street drugs and alcohol. Take all medications as prescribed. When you are in need of refills on your medications, please contact your medical provider and/or outpatient psychiatrist/provider to have this done. Please go to your scheduled outpatient appointment for aftercare treatment. If symptoms return or become worse, call the crisis line at and/or go to the nearest emergency room for evaluation. National Suicide Hotline 619
[2024-01-18 12:51] LABS: Glucose,Whole Blood 69 mg/dL (70-110)
[2024-01-19 02:07] VITALS: BP 92/58; PULSE 79
[2024-01-19 02:08] VITALS: RESP 20; TEMP 97.8
== END 2024-01-18 15:55 | disposition home or self-care (01) | DRG 754 ==
LOC: 3MHU 20:45 → UNDOADMIN 21:23 → 3MHU 01-13 12:36
PROVIDERS: ADMIT Psychiatry & Neurology Psychiatry; ATTEND Psychiatry & Neurology Psychiatry
DX: F32.9 Major depressive disorder, single episode, unspecified (principal); K21.9 Gastro-esophageal reflux disease without esophagitis; F17.200 Nicotine dependence, unspecified, uncomplicated; F43.20 Adjustment disorder, unspecified; T38.3X2A Poisoning by insulin and oral hypoglycemic [antidiabetic] drugs, intentional self-harm, initial encounter; E44.0 Moderate protein-calorie malnutrition; Z28.21 Immunization not carried out because of patient refusal; E16.2 Hypoglycemia, unspecified; E87.20 Acidosis, unspecified; E03.9 Hypothyroidism, unspecified; Z59.86 Financial insecurity; Z63.4 Disappearance and death of family member; Z79.899 Other long term (current) drug therapy; Z91.148 Patient's other noncompliance with medication regimen for other reason; Z68.21 Body mass index [BMI] 21.0-21.9, adult; Z91.51 Personal history of suicidal behavior; Z56.0 Unemployment, unspecified
CPT/HCPCS: 80048; 80053; 80074; 83036; 83525; 83735; 84439; 84443; 84481; 84484; 84681; 85025; 93005

== ENCOUNTER 2024-12-24 17:45 | Emergency (ER) | payer OTHER ==
[2024-12-24 18:29] VITALS: BP 101/67; PULSE 100; RESP 17; TEMP 97.9
--- NOTE | 2024-12-24 19:03 | ED ---
Fall HPI - General Source: patient, RN notes reviewed Mode of arrival: ambulatory Limitations: no limitations <Zora Dos Santos - Last Filed: 12/24/24 19:03> <Jasmine Kasier - Last Filed: 12/24/24 21:22> - General Chief Complaint: Fall Stated Complaint: fall back pain Time Seen by Provider: 12/24/24 19:03 - History of Present Illness Initial Comments: Quick note: 49-year-old male presented the ER for evaluation of a fall. Patient states he was walking off his porch and slipped and fell. He states he landed on his back. He is reporting pain to lumbar spine. Denies head injury, loss of consciousness or blood thinner use. (Zora Dos Santos) 49-year-old male presenting to the ER for low back pain x 3 hours status post mechanical fall. States he was walking off of his porch and slipped and fell backwards, landing on his lower back. He is reporting pain to the lumbar spine. Denies head injury, loss of consciousness, blood thinners. He is able to ambulate. States pain is bilateral and radiates into both hips. Pain is worse with movement. Denies saddle anesthesia, loss of bowel or bladder control. (Jasmine Kaiser) - Related Data Previous Rx's Medication Instructions Recorded Folic Acid 1 mg PO DAILY #30 tablet 01/12/24 Multivitamins, Thera [Multivitamin 1 tab PO DAILY #30 tablet 01/12/24 (formulary)] Pantoprazole Sodium [Protonix] 40 mg PO DAILY #30 tab 01/12/24 Thiamine [Vitamin B-1] 100 mg PO DAILY #30 tablet 01/12/24 Acetaminophen Tab [Tylenol] 650 mg PO Q4HR PRN tab 01/18/24 Levothyroxine Sodium [Synthroid] 100 mcg PO DAILY@0630 #30 tab 01/18/24 Sertraline [Zoloft] 50 mg PO DAILY #30 tab 01/18/24 traZODone HCL [Desyrel] 25 mg PO HS #30 tab 01/18/24 Cyclobenzaprine [Flexeril] 10 mg PO TID PRN #15 tab 12/24/24 Lidocaine 4% Patch 1 patch TOPICAL DAILY PRN 7 Days 12/24/24 #7 patch Allergies Allergy/AdvReac Type Severity Reaction Status Date / Time No Known Allergies Allergy Verified 12/24/24 18:29 Review of Systems ROS Other: All systems not noted in ROS Statement are negative. <SeverianosherylZora - Last Filed: 12/24/24 19:03> ROS Other: All systems not noted in ROS Statement are negative. <Jasmine Kaiser - Last Filed: 12/24/24 21:22> ROS Statement: Those systems with pertinent positive or pertinent negative responses have been documented in the HPI. Past Medical History Past Medical History: Musculoskeletal Disorder Additional Past Medical History / Comment(s): Acid reflux History of Any Multi-Drug Resistant Organisms: None Reported Past Surgical History: Back Surgery Past Anesthesia/Blood Transfusion Reactions: No Reported Reaction Past Psychological History: Depression Smoking Status: Former smoker <SeverianosherylZora - Last Filed: 12/24/24 19:03> General Exam Limitations: no limitations <ElisarebecaZora - Last Filed: 12/24/24 19:03> General appearance: alert, in no apparent distress Head exam: Present: atraumatic, normocephalic, normal inspection Eye exam: Present: normal appearance, PERRL, EOMI. Absent: scleral icterus, conjunctival injection, periorbital swelling GI/Abdominal exam: Present: soft, normal bowel sounds. Absent: distended, tenderness, guarding, rebound, rigid Extremities exam: Present: normal inspection, full ROM, normal capillary refill. Absent: tenderness, pedal edema, joint swelling, calf tenderness Back exam: Present: normal inspection, full ROM, paraspinal tenderness, other (Full strength and range of motion of bilateral hips, no saddle anesthesia, full sensation and DP pulses bilaterally). Absent: tenderness, CVA tenderness (R), CVA tenderness (L), muscle spasm, vertebral tenderness Neurological exam: Present: alert, oriented X3 Psychiatric exam: Present: normal affect, normal mood Skin exam: Present: warm, dry, intact, normal color. Absent: rash <Jasmine Kaiser - Last Filed: 12/24/24 21:22> - General Exam Comments Initial Comments: Visual Physical Exam Vital signs reviewed General: Well-appearing, nontoxic, no acute distress. Head: Normocephalic, atraumatic Eyes: PERRLA, EOMI ENT: Airway patent Chest: Nonlabored breathing Skin: No visual rash, normal skin tone Neuro: Alert and oriented 3 Musculoskeletal: No gross abnormalities (Zora Dos Santos) Course Vital Signs 12/24/24 18:26 Temperature 97.9 F Pulse Rate 100 Respiratory 17 Rate Blood Pressure 101/67 O2 Sat by Pulse 99 Oximetry Medical Decision Making <Zora Dos Santos - Last Filed: 12/24/24 19:03> <JobJasmine - Last Filed: 12/24/24 21:22> - Medical Decision Making I performed the quick note portion of this chart. Electronically signed by Zora Dos Santos PA-C (Zora Dos Santos) Was pt. sent in by a medical professional or institution ([facility], [facility]ION[facility], urgent care, hospital, or usp...) When possible be specific @ -No Did you speak to anyone other than the patient for history (EMS, parent, family, police, friend...)? What history was obtained from this source @ -No Did you review nursing and triage notes (agree or disagree)? Why? @ -I reviewed and agree with nursing and triage notes Were old charts reviewed (outside hosp., previous admission, EMS record, old EKG, old radiological studies, urgent care reports/EKG's, usp records)? Report findings @ -No old charts were reviewed Differential Diagnosis (chest pain, altered mental status, abdominal pain women, abdominal pain men, vaginal bleeding, weakness, fever, dyspnea, syncope, headache, dizziness, GI bleed, back pain, seizure, CVA, palpatations, mental health, musculoskeletal)? @ -Differential Back Pain: Strain, zoster, cauda equina syndrome, epidural abscess, vertebral osteomyelitis, discitis, fracture, subluxation, disc herniation, DJD, spinal stenosis, dissection, AAA, pancreatitis, peptic ulcer disease, pyelonephritis, kidney stone, this is not meant to be an all-inclusive list. EKG interpreted by me (3pts min.). @ -None X-rays interpreted by me (1pt min.). @ -X-ray lumbar spine reveals no acute fracture or dislocation CT interpreted by me (1pt min.). @ -None done U/S interpreted by me (1pt. min.). @ -None done What testing was considered but not performed or refused? (CT, X-rays, U/S, labs)? Why? @ -None What meds were considered but not given or refused? Why? @ -None Did you discuss the management of the patient with other professionals (professionals i.e. , PA, WATER COMMISSIONER, lab, RT, psych nurse, social and political studies professor, die cast technician, teacher, radio electronics officer, heel caser)? Give summary @ -No Was smoking cessation discussed for >3mins.? @ -No Was critical care preformed (if so, how long)? @ -No Were there social determinants of health that impacted care today? How? (Homelessness, low income, unemployed, alcoholism, drug addiction, transportation, low edu. Level, literacy, decrease access to med. care, nursing home, rehab)? @ -No Was there de-escalation of care discussed even if they declined (Discuss DNR or withdrawal of care, Hospice)? DNR status @ -No What co-morbidities impacted this encounter? (DM, HTN, Smoking, COPD, CAD, Cancer, CVA, ARF, Chemo, Hep., AIDS, mental health diagnosis, sleep apnea, morbid obesity)? @ -None Was patient admitted / discharged? Hospital course, mention meds given and route, prescriptions, significant lab abnormalities, going to OR and other pertinent info. @ -Discharge. 49-year-old male presenting for low back pain status post mechanical fall onto back. Patient is able to ambulate. No head injury or blood thinners. Neurovascularly intact. No red flag symptoms. Patient is provided with Toradol, Norflex, and lidocaine patches for supportive care. X- ray lumbar spine reveals no acute fracture or dislocation. Discussed diagnosis of low back strain. Appropriate return precautions and follow-up care discussed. Case was discussed with my ED attending Dr. Dixon. Undiagnosed new problem with uncertain prognosis? @ -No Drug Therapy requiring intensive monitoring for toxicity (Heparin, Nitro, Insulin, Cardizem)? @ -No Were any procedures done? @ -No Diagnosis/symptom? @ -Low back strain Acute, or Chronic, or Acute on Chronic? @ -Acute Uncomplicated (without systemic symptoms) or Complicated (systemic symptoms)? @ -Uncomplicated Side effects of treatment? @ -No Exacerbation, Progression, or Severe Exacerbation? @ -No Poses a threat to life or bodily function? How? (Chest pain, USA, [place], pneumonia, PE, COPD, DKA, ARF, appy, cholecystitis, CVA, Diverticulitis, Homicidal, Suicidal, threat to staff... and all critical care pts) @ -No (Jasmine Kaiser) Disposition <Zora Dos Santos - Last Filed: 12/24/24 19:03> Is patient prescribed a controlled substance at d/c from ED?: No Time of Disposition: 21:21 <Jasmine Kaiser - Last Filed: 12/24/24 21:22> Clinical Impression: Low back strain Disposition: HOME SELF-CARE Condition: Stable Instructions (If sedation given, give patient instructions): Low Back Strain (ED) Additional Instructions: Please return to the Emergency Department if symptoms worsen or any other concerns. Prescriptions: Cyclobenzaprine [Flexeril] 10 mg PO TID PRN #15 tab PRN Reason: Muscle Spasm Lidocaine 4% Patch 1 patch TOPICAL DAILY PRN 7 Days #7 patch PRN Reason: Pain Referrals: None,Stated [Primary Care Provider] - 1-2 days
--- NOTE | 2024-12-24 19:45 | XR ---
EXAMINATION TYPE: XR lumbar spine 2 or 3V DATE OF EXAM: 12/24/2024 7:22 PM COMPARISON: None CLINICAL INDICATION: Male, 49 years old with history of pain s/p fall; PHH, pain TECHNIQUE: XR lumbar spine 2 or 3V - Frontal, lateral and coned in L5-S1 lateral views of the spine. FINDINGS: No evidence of any acute osseous pathology. No evidence of loss of vertebral body height i s seen. There is normal alignment of the lumbar vertebral bodies. Minimal marginal osteophyte formati on throughout the visualized spine. There is facet joint arthropathy throughout the spine. No signifi cant neural foraminal stenosis. IMPRESSION: 1. No acute fracture. 2. Mild multilevel disc degeneration. [facility], , 12/24/2024 7:43 PM
[2024-12-24] MEDS: KETOROLAC 15 MG/ML 1 ML VIAL IM STA (20:09)
[2024-12-24] MEDS: LIDOCAINE 4% PATCH TOPICAL ONE (20:13)
[2024-12-24] MEDS: ORPHENADRINE 30 MG/ML 2 ML VIAL IM STA (20:13)
== END 2024-12-24 21:35 | disposition home or self-care (01) ==
LOC: EC 17:45
DX: S39.012A Strain of muscle, fascia and tendon of lower back, initial encounter (principal); Z87.891 Personal history of nicotine dependence; W01.0XXA Fall on same level from slipping, tripping and stumbling without subsequent striking against object, initial encounter; Y93.01 Activity, walking, marching and hiking
CPT/HCPCS: 72100; 99283; 96372 ×2; J2360; J1885

== ENCOUNTER 2025-03-06 10:02 | Emergency (ER) | payer OTHER ==
[2025-03-06 10:07] VITALS: RESP 16
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
[2025-03-06] MEDS: MUPIROCIN 2% OINT 22 GM TUBE TOPICAL STA (11:29)
[2025-03-06] MEDS: DIPH,PERTUS(ACELL)TETVAC-LF 0.5 ML VIAL IM ONE (11:30)
[2025-03-06 11:39] VITALS: BP 101/72; PULSE 80; TEMP 98
== END 2025-03-06 11:40 | disposition home or self-care (01) ==
LOC: EC 10:02
DX: T23.201A Burn of second degree of right hand, unspecified site, initial encounter (principal); Z87.891 Personal history of nicotine dependence; Z23 Encounter for immunization; X08.8XXA Exposure to other specified smoke, fire and flames, initial encounter
CPT/HCPCS: 16020; 90471; 90715; 99283